=== PATIENT | female | born 1955 | race Caucasian/White ===

== ENCOUNTER 2021-07-20 09:52 | Emergency (ER) | payer MEDICARE, SELFPAY ==
[2021-07-20 10:02] VITALS: BP 103/68; PULSE 85; RESP 14; TEMP 36.2; O2SAT 98; BMI 25.7
--- NOTE | 2021-07-20 10:06 | ED_ITS ---
HPI - General Adult General: Chief complaint: General Medical Stated complaint: Low Blood Pressure Time Seen by Provider: 07/20/21 09:59 History of Present Illness: HPI narrative: Ms. Zee is a 65-year-old lady with significant past medical history of hypertension, hyperlipidemia, diabetes who presents emergency department due to concern over low blood pressure. The patient is typically seen in [facility] and has not recently been here. Per daughter, who provides all of the history at bedside, the patient has been a little bit more weak and fatigued starting yesterday but definitely over today. She took her blood pressure at home and it was 80/50. She did not recheck it and decided to bring her here to the emergency department for evaluation. Apparently the patient is more or less nonverbal at baseline for unclear reasons and rarely speaks. As such history is limited. The patient does have sick contacts. Other specific symptoms, qualities, intensities, provoking, exacerbating, and alleviating factors are unclear. Review of Systems General: Reports: ROS unobtainable due to mental status PFS ED PFSH: Surgical History History of cholecystectomy Social History Smoking and tobacco status: never smoked Alcohol intake: never Physical Exam Narrative: EXAM NARRATIVE: GENERAL/CONSTITUTIONAL -somewhat frail-appearing. No acute distress. Eyes - PERRL, no conjunctival injection ENMT - Atraumatic external nose and ears. Dry mucous membranes NECK - supple. trachea midline CARDIOVASCULAR - regular rate and rhythm. No peripheral edema. RESPIRATORY -diminished to auscultation bilaterally. No retractions or accessory muscle use. ABDOMEN/GI - Nontender. Nondistended. MSK - Extremities without obvious deformity or tenderness to palpation SKIN - Warm, Dry NEURO - alert and looks around, does not answer question,s, unable to assess orientation given patient's nonverbal status. Moves all extremities though requires significant assistance to get into bed. Course ED course: - Patient was seen and evaluated by me at bedside - Patient placed on cardiac monitors, IV access obtained - Initial evaluation notable for no acute distress, nontoxic appearance - Labs notable for no leukocytosis, normal hemoglobin. Metabolic panel without significant abnormality to explain the patient's symptoms. Delta troponin negative. Prolonged ED course due to waiting on urine, urinalysis positive for urinary tract infection. - Imaging notable for ED read of chest x-ray with no lobar consolidation. CT head notable for enlarged ventricles. Additional history obtained and patient has largely been similar as far as mental status for about 1 year. She does occasionally talk but not often. There is no acute decline. She is ambulatory with assistance however gait is not classic for primary neurologic etiology - Upon serial reexamination after treatment the patient was similar - Based on patient history, evaluation, labs, and imaging as interpreted the most likely cause of the patient's condition is urinary tract infection. I did discuss hydrocephalus findings with the patient's daughter, patient will need further outpatient evaluation. - The results of ED evaluation were discussed with the patient including prescriptions and/or symptomatic cares (if applicable) including appropriate and responsible use, followup plan, and return precautions. The patient verbalized understanding and felt safe for discharge. - Patient discharged in satisfactory condition. Vital Signs: Vital signs: Vital Signs Temperature 97.1 F L 07/20/21 10:02 Pulse Rate 72 07/20/21 16:42 Respiratory Rate 18 07/20/21 16:42 Blood Pressure 130/91 07/20/21 16:42 Pulse Oximetry 96 07/20/21 16:42 MDM - General Adult Medical Records: Attestation: I reviewed the patient's medical records. Lab Data: Attestation: I reviewed the patient's lab results. Labs: Lab Results 07/20/21 07/20/21 07/20/21 10:25 10:25 10:25 WBC 5.9 10^3/uL 10^3/ uL (4.0-10.0) RBC 4.16 10^6/uL 10^6 /uL (4.1-5.3) Hgb 13.0 g/dL g/dL (11.5-15.3) Hct 39.7 % % (37.0-47.0) MCV 95.4 fl fl (81-99) MCH 31.3 pg pg (28.0-34.0) MCHC 32.7 g/dL g/dL (30.0-36.0) RDW 11.8 % L % (12.1-15.1) Plt Count 204 10^3/cmm 10^3 /cmm (130-400) MPV 11.0 fL H fL (7.4-10.4) Neut % (Auto) 72.8 % % Lymph % (Auto) 18.4 % % Granite % (Auto) 6.2 % % Eos % (Auto) 1.9 % % Baso % (Auto) 0.5 % % Neut # (Auto) 4.32 10^3/uL 10^3 /uL (1.8-7.7) Lymph # (Auto) 1.1 10^3/uL 10^3/ uL (0.8-4.8) Granite # (Auto) 0.4 10^3/uL 10^3/ uL (0.2-0.9) Eos # (Auto) 0.1 10^3/uL 10^3/ uL (0.0-0.8) Baso # (Auto) 0.0 10^3/uL 10^3/ uL (0.0-0.1) Nucleated RBC % (a uto) 0 % % Nucleated RBCs # 0.0 /100WBC /100W BC Sodium 142 mmol/L mmol/L (136-145) Potassium 4.1 mmol/L mmol/L (3.5-5.1) Chloride 105 mmol/L mmol/L (98-107) Carbon Dioxide 27 mmol/L mmol/L (22-29) Anion Gap 14.1 (5-19) BUN 11 mg/dL mg/dL (8-23) Creatinine 0.6 mg/dL mg/dL (0.5-0.9) GFR Calculation 100.0 mL/min mL/m in (90-130) Glucose 212 mg/dL H mg/dL (65-115) POC Glucose Calculated Osmolal ity 300 mOsm/kg H mOs m/kg (285-295) Lactate 1.8 mmol/L mmol/L (0.5-2.2) Calcium 9.2 mg/dL mg/dL (8.5-10.5) Total Bilirubin 0.3 mg/dL mg/dL (0.15-1.2) AST 14 U/L U/L (0-32) ALT 14 U/L U/L (0-33) Alkaline Phosphata se 115 IU/L H IU/L (35-105) Troponin T Baselin e Troponin T 120 Min [place] Delta Troponin T Troponin T Hi Sens 6Hr Troponin T Hi Sens 6Hr Delta Total Protein 6.4 g/dL L g/dL (6.6-8.7) Albumin 3.6 g/dL g/dL (3.5-5.2) Globulin 2.8 g/dL g/dL (1.3-4.6) TSH 1.58 uIU/mL uIU/m L (0.27-4.20) Urine Color Urine Appearance Urine pH Ur Specific Gravit y Urine Protein Urine Glucose (UA) Urine Ketones Urine Blood Urine Nitrate Urine Bilirubin Urine Urobilinogen Ur Leukocyte [place] Urine RBC Urine WBC Ur Squamous Epith Cells Amorphous Sediment Urine Bacteria SARS-CoV-2 Ag (Rap id) 07/20/21 07/20/21 07/20/21 10:25 10:35 10:55 WBC RBC Hgb Hct MCV MCH MCHC RDW Plt Count MPV Neut % (Auto) Lymph % (Auto) Granite % (Auto) Eos % (Auto) Baso % (Auto) Neut # (Auto) Lymph # (Auto) Granite # (Auto) Eos # (Auto) Baso # (Auto) Nucleated RBC % (a uto) Nucleated RBCs # Sodium Potassium Chloride Carbon Dioxide Anion Gap BUN Creatinine GFR Calculation Glucose POC Glucose 217 mg/dL H mg/dL (70-110) Calculated Osmolal ity Lactate Calcium Total Bilirubin AST ALT Alkaline Phosphata se Troponin T Baselin e 14 ng/L H ng/L (0-10) Troponin T 120 Min [place] Delta Troponin T Troponin T Hi Sens 6Hr Troponin T Hi Sens 6Hr Delta Total Protein Albumin Globulin TSH Urine Color Urine Appearance Urine pH Ur Specific Gravit y Urine Protein Urine Glucose (UA) Urine Ketones Urine Blood Urine Nitrate Urine Bilirubin Urine Urobilinogen Ur Leukocyte [place] Urine RBC Urine WBC Ur Squamous Epith Cells Amorphous Sediment Urine Bacteria SARS-CoV-2 Ag (Rap id) Negative (Negative) 07/20/21 07/20/21 07/20/21 12:15 15:25 16:25 WBC RBC Hgb Hct MCV MCH MCHC RDW Plt Count MPV Neut % (Auto) Lymph % (Auto) Granite % (Auto) Eos % (Auto) Baso % (Auto) Neut # (Auto) Lymph # (Auto) Granite # (Auto) Eos # (Auto) Baso # (Auto) Nucleated RBC % (a uto) Nucleated RBCs # Sodium Potassium Chloride Carbon Dioxide Anion Gap BUN Creatinine GFR Calculation Glucose POC Glucose Calculated Osmolal ity Lactate Calcium Total Bilirubin AST ALT Alkaline Phosphata se Troponin T Baselin e Troponin T 120 Min [place] 13.93 ng/L H ng/L (0-10) Delta Troponin T -0.07 ABS# L ABS# (0-10) Troponin T Hi Sens 6Hr 13.72 ng/L H ng/L (0-10) Troponin T Hi Sens 6Hr Delta -0.28 ng/L L ng/L (0-12) Total Protein Albumin Globulin TSH Urine Color Yellow (Yellow) Urine Appearance Cloudy (CLEAR) Urine pH 7 (5-7) Ur Specific Gravit y 1.005 (1.005-1.030) Urine Protein Neg (Negative) Urine Glucose (UA) Norm (Normal) Urine Ketones Negative (Negative) Urine Blood 2+ H (Negative) Urine Nitrate Positive H (Negative) Urine Bilirubin Neg (Negative) Urine Urobilinogen Norm mg/dL mg/dL (Negative) Ur Leukocyte [place] 2+ H (Negative) Urine RBC 5-10 /hpf H /hpf (0-2) Urine WBC Too numerous to c nt /hpf H /hpf (0-5) Ur Squamous Epith Cells 0-4 /hpf H /hpf (0-5) Amorphous Sediment Not Reportable Urine Bacteria 2+ /hpf H /hpf (NONE) SARS-CoV-2 Ag (Rap id) EKG Data^: EKG 1: Attestation: I personally reviewed and interpreted this EKG as follows: EKG interpretation date: 07/20/21 EKG interpretation time: 11:23 Interpretation: Twelve-lead EKG shows a regular sinus rhythm at a rate of 70. FL interval 152, QRS duration 84, QTc 424. Normal axis. Interpretation: Sinus rhythm Computer generated interpretation: Chest X-Ray 07/20/21 10:15 IMPRESSION: No acute findings. Head CT 07/20/21 10:17 IMPRESSION: 1. The ventricles are diffusely more dilated than on the prior exam without significant change in diffuse volume loss concerning for hydrocephalus. 2. No acute hemorrhage or infarct. 3. There is patchy opacification of the right mastoid air cells. The left mastoid air cells are clear. Radiation Dose CTDIVOL = (mGy): DLP = 832.51 (mGy-cm) EKG 2: Attestation: I personally reviewed and interpreted this EKG as follows: EKG interpretation date: 07/20/21 EKG interpretation time: 16:33 Interpretation: Twelve-lead EKG shows regular sinus rhythm at a rate of 78. FL interval 173, QRS duration 76, QTc 421. Normal axis. Interpretation: Sinus rhythm, somewhat limited interpretation of inferior leads given wandering baseline. Computer generated interpretation: Chest X-Ray 07/20/21 10:15 IMPRESSION: No acute findings. Head CT 07/20/21 10:17 IMPRESSION: 1. The ventricles are diffusely more dilated than on the prior exam without significant change in diffuse volume loss concerning for hydrocephalus. 2. No acute hemorrhage or infarct. 3. There is patchy opacification of the right mastoid air cells. The left mastoid air cells are clear. Radiation Dose CTDIVOL = (mGy): DLP = 832.51 (mGy-cm) Discharge Plan Discharge Patient Disposition: Home Clinical Impression: Acute UTI, Hydrocephalus Condition: Stable Prescriptions: New cephalexin 500 mg capsule 500 mg PO Q6H 10 Days Qty: 40 RF: 0 No Action venlafaxine 75 mg tablet 75 mg PO DAILY RF: 0 glipizide 10 mg tablet 10 mg PO DAILY RF: 0 Tresiba FlexTouch U-100 100 unit/mL (3 mL) insulin pen 15 unit SUBCUT DAILY RF: 0 metformin 500 mg tablet 500 mg PO DAILY RF: 0 oxybutynin chloride 5 mg tablet 5 mg PO BID RF: 0 lisinopril 10 mg tablet 10 mg PO DAILY RF: 0 simvastatin 10 mg tablet 10 mg PO DAILY RF: 0 gabapentin 300 mg capsule 300 mg PO TID RF: 0 Discharge Orders: Discharge ED (Routine); Ordered 07/20/21 Ordered By: Maximiliano Mendez Referrals: GIOVANNI SILVEIRA MD [Primary Care Provider] - Discharge Diet: Usual diet Discharge Activity: Resume usual activity Patient Instructions: Urinary Tract Infection in Women (ED), Hydrocephalus (ED) Activity Restrictions/Additional Instructions: Thank you for visiting the emergency department. You were seen and evaluated for generalized symptoms. You are found to have a urinary tract infection which will be treated with antibiotics. The incidental finding of enlarged ventricles reflecting hydrocephalus on CT imaging was discussed and we recommend close follow-up with both your primary care provider and neurology as soon as possible. Please return to the emergency department for worsening symptoms or anything else that you are concerned about and feel needs emergency department evaluation. Coding Level of Care Code ED Addictions Counselor Assistant for Christiana Whiteside
--- NOTE | 2021-07-20 10:15 | ECG_ITS ---
[facility] Test Date: 2021-07-20 Pat Name: Melba Zee Department: Room: Gender: Female Area Coordinator: : 1955 Requested By: Maximiliano Mendez Order Number: [id number] Janna MD: Lb Muse M.D. Measurements Intervals [place] Rate: 70 P: 46 [place]: 152 QRS: 10 QRSD: 84 T: 47 QT: 392 QTc: 424 Interpretive Statements SINUS RHYTHM WITH OCCASIONAL SUPRAVENTRICULAR PREMATURE COMPLEXES LOW QRS VOLTAGE IN PRECORDIAL LEADS [QRS DEFLECTION < 1.0 mV IN CHEST LEADS] Compared to ECG 05/22/2019 16:48:22 Low QRS voltage now present Electronically Signed On 07-20-2021 18:05:55 CDT by Lb Muse M.D. [id number]
--- NOTE | 2021-07-20 10:15 | XRR_ITS ---
PROCEDURE INFORMATION: Exam: XR Chest Exam date and time: 07/20/2021 10:15 AM Age: 65 years old Clinical indication: Dyspnea; Additional info: Hypotension TECHNIQUE: Imaging protocol: XR of the chest. Views: 1 view. COMPARISON: No relevant prior studies available. FINDINGS: Lungs: There is poor depth of inspiration. No consolidation. The pulmonary vascularity is within normal limits. Pleural spaces: Unremarkable. No pleural effusion. No pneumothorax. Heart/Mediastinum: Unremarkable. No cardiomegaly. Bones/joints: No acute abnormality. XR/XR chest 1V portable [id number] IMPRESSION: No acute findings.
--- NOTE | 2021-07-20 10:17 | CTR_ITS ---
PROCEDURE INFORMATION: Exam: CT Head Without Contrast Exam date and time: 07/20/2021 10:17 AM Age: 65 years old Clinical indication: Altered mental status/memory loss; Confusion or disorientation; Additional info: AMS, nonverbal TECHNIQUE: Imaging protocol: Computed tomography of the head without contrast. Radiation optimization: All CT scans at this facility use at least one of these dose optimization techniques: automated exposure control; mA and/or kV adjustment per patient size (includes targeted exams where dose is matched to clinical indication); or iterative reconstruction. COMPARISON: CT head wo con* [id number] 05/22/2019 4:52 PM RADIATION DOSE METRICS: Total DLP (mGy-cm): 832.51 FINDINGS: Brain: There is volume loss and periventricular low density compatible with chronic small vessel disease changes. There is no acute hemorrhage, edema or mass effect. There is unchanged volume loss/encephalomalacia in the left frontal, parietal and temporal lobes. Cerebral ventricles: All of the ventricles are more dilated than the prior exam without significant change in the volume loss concerning for hydrocephalus with dilatation of the temporal horns. The 3rd ventricle transverse measurement is 1 cm image 19 today where previously it measured 7 mm. Paranasal sinuses: Visualized sinuses are unremarkable. No fluid levels. Mastoid air cells: There is patchy opacification of the right mastoid air cells. Bones/joints: Unremarkable. No acute fracture. Soft tissues: Unremarkable. CT/CT head wo con* [id number] IMPRESSION: 1. The ventricles are diffusely more dilated than on the prior exam without significant change in diffuse volume loss concerning for hydrocephalus. 2. No acute hemorrhage or infarct. 3. There is patchy opacification of the right mastoid air cells. The left mastoid air cells are clear. Radiation Dose CTDIVOL = (mGy): DLP = 832.51 (mGy-cm)
[2021-07-20 10:37] LABS: Glucose Point of Care 217 mg/dL (70-110)
[2021-07-20 10:43] LABS: Basophils % 0.5 %; Eosinophils # 0.1 10^3/uL (0.0-0.8); Eosinophils % 1.9 %; Hematocrit 39.7 % (37.0-47.0); Lymphocytes # 1.1 10^3/uL (0.8-4.8); Lymphocytes % 18.4 %; Mean Corpuscular HGB Conc 32.7 g/dL (30.0-36.0); Mean Corpuscular Hemoglobin 31.3 pg (28.0-34.0); Mean Corpuscular Volume 95.4 fl (81-99); Monocytes # 0.4 10^3/uL (0.2-0.9); Monocytes % 6.2 %; Neutrophils # 4.32 10^3/uL (1.8-7.7); Neutrophils % 72.8 %; Nucleated Red Blood Cells % 0 %; Platelet Count 204 10^3/cmm (130-400); Red Blood Count 4.16 10^6/uL (4.1-5.3); Red Cell Distribution Width 11.8 % (12.1-15.1); White Blood Count 5.9 10^3/uL (4.0-10.0)
[2021-07-20] MEDS: sodium chloride 0.9% 1,000 ML 999 ML IV (11:08)
[2021-07-20 11:09] LABS: Troponin(5th) Baseline 14 ng/L (0-10)
[2021-07-20 11:10] LABS: Lactate (Lactic Acid level) 1.8 mmol/L (0.5-2.2)
[2021-07-20 11:19] LABS: Alanine Aminotransferase 14 U/L (0-33); Albumin Level 3.6 g/dL (3.5-5.2); Alkaline Phosphatase 115 IU/L (35-105); Anion Gap 14.1 (5-19); Aspartate Amino Transferase 14 U/L (0-32); Blood Urea Nitrogen 11 mg/dL (8-23); Calcium 9.2 mg/dL (8.5-10.5); Carbon Dioxide 27 mmol/L (22-29); Chloride 105 mmol/L (98-107); Creatinine Clr Calc Pharmacy 65.5597; Globulin 2.8 g/dL (1.3-4.6); Glucose 212 mg/dL (65-115); Osmolality Calculated 300 mOsm/kg (285-295); Potassium 4.1 mmol/L (3.5-5.1); Sodium 142 mmol/L (136-145); Thyroid Stimulating Hormone 1.58 uIU/mL (0.27-4.20); Total Bilirubin 0.3 mg/dL (0.15-1.2); Total Protein 6.4 g/dL (6.6-8.7)
[2021-07-20 11:44] LABS: SARS Covid-2 Antigen Negative (Negative)
[2021-07-20 12:02] VITALS: BP 135/70; PULSE 64; RESP 17; O2SAT 95
--- NOTE | 2021-07-20 12:15 | ECG_ITS ---
[facility] Test Date: 2021-07-20 Pat Name: Melba Zee Department: Room: Gender: Female Business Consult: : 1955 Requested By: Maximiliano Mendez Order Number: [id number] Janna MD: Lb Muse M.D. Measurements Intervals [place] Rate: 86 P: 51 VT: 178 QRS: 22 QRSD: 71 T: 47 QT: 347 QTc: 416 Interpretive Statements SINUS RHYTHM WITH OCCASIONAL SUPRAVENTRICULAR PREMATURE COMPLEXES LOW QRS VOLTAGE IN PRECORDIAL LEADS [QRS DEFLECTION < 1.0 mV IN CHEST LEADS] SEPTAL MYOCARDIAL INFARCTION , PROBABLY OLD [40+ ms Q WAVE IN V1/V2] Compared to ECG 05/22/2019 16:48:22 Low QRS voltage now present Myocardial infarct finding now present Electronically Signed On 07-20-2021 18:16:38 CDT by Lb Muse M.D. [id number]
[2021-07-20 12:46] VITALS: BP 128/84; PULSE 67; RESP 18; O2SAT 100
[2021-07-20 12:49] LABS: Troponin 5 2HR 13.93 ng/L (0-10)
[2021-07-20 12:50] LABS: Troponin 5 2HR Delta -0.07 ABS# (0-10)
[2021-07-20 13:34] VITALS: BP 142/79; PULSE 67; RESP 17; O2SAT 100
[2021-07-20] MEDS: lactated ringers 1,000 ML 999 ML IV (14:06)
--- NOTE | 2021-07-20 16:15 | ECG_ITS ---
[facility] Test Date: 2021-07-20 Pat Name: Melba Zee Department: Room: Gender: Female Lab Support Service Tech: : 1955 Requested By: Maximiliano Mendez Order Number: [id number] Janna MD: Lb Muse M.D. Measurements Intervals [place] Rate: 78 P: 44 [place]: 173 QRS: 4 QRSD: 76 T: 26 QT: 369 QTc: 421 Interpretive Statements SINUS RHYTHM LOW QRS VOLTAGE IN PRECORDIAL LEADS [QRS DEFLECTION < 1.0 mV IN CHEST LEADS] SEPTAL MYOCARDIAL INFARCTION , PROBABLY OLD [40+ ms Q WAVE IN V1/V2] Compared to ECG 07/20/2021 13:06:06 No significant changes Electronically Signed On 07-20-2021 18:16:58 CDT by Lb Muse M.D. [id number]
[2021-07-20 16:42] VITALS: BP 130/91; PULSE 72; RESP 18; O2SAT 96
[2021-07-20 16:52] LABS: Bilirubin Urine Neg (Negative); Blood Urine 2+ (Negative); Glucose Urine UA Norm (Normal); Ketones Urine Negative (Negative); Nitrate Urine Positive (Negative); Protein Urine Neg (Negative); Specific Gravity, Urine 1.005 (1.005-1.030); Urine Appearance Cloudy (CLEAR); Urine Color Yellow (Yellow); Urobilinogen Urine Norm (Negative); pH Urine 7 (5-7)
[2021-07-20 16:53] LABS: Add Urine Culture? Yes; Add Urine Microscopic? YES; Bacteria Urine 2+ /hpf; Leukocyte Esterase Urine 2+ (Negative); Squamous Epithelial Cell Urine 0-4 /hpf (0-5); WBC Urine TOO NUMEROUS TO CNT /hpf (0-5)
[2021-07-20 17:18] LABS: Troponin 5 6HR 13.72 ng/L (0-10)
[2021-07-20 17:19] LABS: Troponin 5 6HR Delta -0.28 ng/L (0-12)
[2021-07-20] MEDS: cefTRIAXone 1,000 MG in sodium chloride 0.9% (plus) 50 ML 100 MG IV (17:25)
== END 2021-07-20 18:02 | disposition home or self-care (01) ==
PROVIDERS: Emergency Provider Emergency Medicine; PCP Family Medicine
DX: N39.0 Urinary tract infection, site not specified (principal); G91.9 Hydrocephalus, unspecified; Z79.4 Long term (current) use of insulin; Z20.822 Contact with and (suspected) exposure to COVID-19
CPT/HCPCS: 36415; 36416; 70450; 71045; 80053; 81001; 82962; 83605; 84443; 84484; 85025; 87077; 87086; 87186; 87426; 93005; 96361; 96365; 99284; J0696; J7030

== ENCOUNTER → 2021-08-15 14:19 | Outpatient (BNVA) | payer MEDICARE, SELFPAY | PROVIDERS: PCP Family Medicine; Visit Provider Registered Nurse Neonatal Intensive Care | DX: N39.0 Urinary tract infection, site not specified (principal) | CPT/HCPCS: 81000 ==

== ENCOUNTER 2022-01-06 17:05 | Inpatient (IN) | payer MEDICARE, MEDICAID, SELFPAY ==
[2022-01-06 17:34] VITALS: PULSE 71; TEMP 36.1; O2SAT 90; BMI 21.4
--- NOTE | 2022-01-06 17:37 | W.ED.GENADLT ---
Documented by User: Willam Batres DO 01/08/22 06:54 HPI - General Adult General: Chief complaint: General Medical Stated complaint: failure to thrive Time Seen by Provider: 01/06/22 17:07 History of Present Illness: Onset (ago): week(s) Severity: severe Relieving factors: none Exacerbating factors: none Associated symptoms: Reports confusion, decreased appetite, malaise and weakness; Deny chest pain, cough, diaphoresis, dyspnea, fevers/chills, headache(s), nausea, rash, seizures, short of breath, syncope or vomiting Treatments prior to arrival: none Review of Systems General: Reports: Other (Difficult due to patient's mental status. Caregivers at the bedside assist) Const: Reports: malaise; Denies: diaphoresis Card: Denies: chest pain or syncope Resp: Denies: dyspnea GI: Denies: nausea or vomiting Skin/Breast: Denies: rash Neuro: Reports: confusion; Denies: headache(s) PFS ED PFSH: Medical History Dementia Diabetes HLD (hyperlipidemia) Hydrocephalus Hypertension Surgical History History of cholecystectomy Social History Smoking and tobacco status: never smoked Alcohol intake: never Physical Exam Const: COMMON NORMALS: no acute distress GENERAL APPEARANCE: comfortable NUTRITIONAL APPEARANCE: cachectic ORIENTATION/CONSCIOUSNESS: Yes awake HENMT: COMMON NORMALS: normocephalic, atraumatic, hearing grossly normal bilaterally, external ears normal, EAC's normal, TM's normal bilaterally, Normal nasal mucous membranes and turbinates present, moist oral mucous membranes and oropharynx normal HEAD & SCALP: normocephalic and atraumatic NOSE: Normal nasal mucous membranes and turbinates present EXTERNAL EAR: Yes external ears normal EXTERNAL AUDITORY CANAL: EAC's normal TYMPANIC MEMBRANE: TM's normal bilaterally Eye: COMMON NORMALS: Equal, round and reactive pupils present, EOMs intact bilaterally, conjunctivae normal and no scleral icterus CONJUNCTIVA: Yes conjunctivae normal PUPIL: Yes Equal, round and reactive pupils present Neck/C-Spine: COMMON NORMALS: full ROM, no lymphadenopathy, supple and no JVD Lymph: LYMPHATIC: no lymphadenopathy noted and no lymphedema noted Resp: COMMON NORMALS: normal respiratory effort, No retractions, No use of accessory muscles and clear to auscultation bilaterally AUSCULTATION: clear to auscultation bilaterally Cardio: COMMON NORMALS: no JVD, regular rate, regular rhythm and No murmurs present (Cardio) RATE: regular rate RHYTHM: regular rhythm GI: COMMON NORMALS: Soft to palpation and No hepatosplenomegaly present AUSCULTATION: Yes normoactive bowel sounds PALPATION: Yes Soft to palpation, No Tenderness to palpation present (GI), No Guarding due to palpation present (GI) and Yes No hepatosplenomegaly present Extremity: COMMON NORMALS: normal to inspection, capillary refill normal, no clubbing, cyanosis or edema, no calf tenderness and no pedal edema Neuro: OTHER: Patient nonresponsive to all questions. Skin: COMMON NORMALS: no rashes or lesions noted GENERAL SKIN EXAM: no rashes or lesions noted Course Vital Signs: Vital signs: Vital Signs Temperature 97.9 F 01/08/22 04:00 Pulse Rate 84 01/08/22 04:00 Respiratory Rate 16 01/08/22 04:00 Blood Pressure 101/63 01/08/22 04:00 Pulse Oximetry 96 01/08/22 04:00 [facility] - General Adult Medical Decision Making Care signed out to Dr. Brandt at change of shift. See final notes for diagnosis and disposition. WeaknessPatient presents here with failure to thrive and weight loss. Family states she has not been eating or drinking spoke to hospitalist will admit for rehydration. Patient's blood work does show that she is quite dehydrated Lab Data : 01/08/22 05:47 01/07/22 17:00 Radiology Impressions Chest X-Ray 01/06/22 17:38 IMPRESSION: No acute findings. Head CT 01/06/22 17:38 IMPRESSION: 1. No acute intracranial abnormality. 2. Right mastoid effusion. 3. Marked cerebral atrophy and chronic microvascular white matter disease. Liver Ultrasound 01/07/22 08:07 IMPRESSION: 1. Hepatic echotexture suggesting changes of cirrhosis. No mass. 2. Gallbladder is not identified. May have been surgically removed or contracted. 3. No bile duct dilatation. Laboratory Results WBC 12.5 10^3/uL (4.0-10.0) H 01/06/22 18:20 RBC 5.46 10^6/uL (4.1-5.3) H 01/06/22 18:20 Hgb 17.2 g/dL (11.5-15.3) H 01/06/22 18:20 Hct 55.4 % (37.0-47.0) H 01/06/22 18:20 MCV 101.5 fl (81-99) H 01/06/22 18:20 MCH 31.5 pg (28.0-34.0) 01/06/22 18: MCHC 31.0 g/dL (30.0-36.0) 01/06/22 18: RDW 13.2 % (12.1-15.1) 01/06/22 18: Plt Count 194 10^3/cmm (130-400) 01/06/22 18:20 MPV 14.4 fL (7.4-10.4) H 01/06/22 18:20 Neut % (Auto) 82.2 % 01/06/22 18:20 Lymph % (Auto) 12.1 % 01/06/22 18:20 [place] % (Auto) 4.5 % 01/06/22 18:20 Eos % (Auto) 0.5 % 01/06/22 18: Baso % (Auto) 0.3 % 01/06/22 18:20 Neut # (Auto) 10.31 10^3/uL (1.8-7.7) H 01/06/22 18:20 Lymph # (Auto) 1.5 10^3/uL (0.8-4.8) 01/06/22 18:20 [place] # (Auto) 0.6 10^3/uL (0.2-0.9) 01/06/22 18:20 Eos # (Auto) 0.1 10^3/uL (0.0-0.8) 01/06/22 18:20 Baso # (Auto) 0.0 10^3/uL (0.0-0.1) 01/06/22 18:20 Nucleated RBC % (auto) 0 % 01/06/22 18: Nucleated RBCs # 0.0 /100WBC 01/06/22 18:20 Sodium 152 mmol/L (136-145) H 01/06/22 18:20 Potassium 4.6 mmol/L (3.5-5.1) 01/06/22 18:20 Chloride 115 mmol/L (98-107) H 01/06/22 18:20 Carbon Dioxide 24 mmol/L (22-29) 01/06/22 18:20 Anion Gap 17.6 (5-19) 01/06/22 18:20 BUN 93 mg/dL (8-23) H* D 01/06/22 18:20 Creatinine 1.5 mg/dL (0.5-0.9) H 01/06/22 18:20 GFR Calculation 34.6 mL/min (90-130) L 01/06/22 18:20 Glucose 255 mg/dL (65-115) H 01/06/22 18:20 Calculated Osmolality 351 mOsm/kg (285-295) H 01/06/22 18:20 Lactic Acid 2.3 mmol/L (0.5-2.2) H 01/06/22 18:20 Calcium 10.6 mg/dL (8.5-10.5) H 01/06/22 18:20 Magnesium 2.5 mg/dL (1.7-2.3) H 01/06/22 18:20 Total Bilirubin 0.3 mg/dL (0.15-1.2) 01/06/22 18:20 AST 253 U/L (0-32) H 01/06/22 18:20 ALT 360 U/L (0-33) H 01/06/22 18:20 Alkaline Phosphatase 477 IU/L (35-105) H 01/06/22 18:20 Creatine Kinase 47 U/L (26-192) 01/06/22 18:20 Total Protein 7.4 g/dL (6.6-8.7) 01/06/22 18:20 Albumin 3.9 g/dL (3.5-5.2) 01/06/22 18:20 Globulin 3.5 g/dL (1.3-4.6) 01/06/22 18:20 Lipase 19 U/L (13-60) 01/06/22 18:20 Urine Color Yellow (Yellow) 01/06/22 18:20 Urine Appearance Hazy (CLEAR) A 01/06/22 18:20 Urine pH 5 (5-7) 01/06/22 18:20 Ur Specific [place] 1.030 (1.005-1.030) 01/06/22 18:20 Urine Protein 1+ (Negative) H 01/06/22 18:20 Urine Glucose (UA) Norm (Normal) 01/06/22 18:20 Urine Ketones Negative (Negative) 01/06/22 18:20 Urine Blood Trace (Negative) H 01/06/22 18:20 Urine Nitrate Negative (Negative) 01/06/22 18:20 Urine Bilirubin 1+ (Negative) H 01/06/22 18:20 Urine Urobilinogen 4 mg/dL (Negative) H 01/06/22 18:20 Ur Leukocyte Esterase 2+ (Negative) H 01/06/22 18:20 Urine RBC 0-4 /hpf (0-2) H 01/06/22 18:20 Urine WBC 15-25 /hpf (0-5) H 01/06/22 18:20 Ur Squamous Epith Cells 0-4 /hpf (0-5) H 01/06/22 18:20 Amorphous Sediment Not Reportable 01/06/22 18:20 Urine Bacteria 4+ /hpf (NONE) H 01/06/22 18:20 Urine Mucus 3+ /hpf 01/06/22 18:20 Ur Random Sodium 31 mmol/L 01/06/22 10:20 Ur Random Potassium 64 mmol/L 01/06/22 10:20 Ur Random Chloride 19 mmol/L 01/06/22 10:20 EKG Data EKG 1: Computer generated interpretation: Chest X-Ray 01/06/22 17:38 IMPRESSION: No acute findings. Head CT 01/06/22 17:38 IMPRESSION: 1. No acute intracranial abnormality. 2. Right mastoid effusion. 3. Marked cerebral atrophy and chronic microvascular white matter disease. Liver Ultrasound 01/07/22 08:07 IMPRESSION: 1. Hepatic echotexture suggesting changes of cirrhosis. No mass. 2. Gallbladder is not identified. May have been surgically removed or contracted. 3. No bile duct dilatation. Discharge Plan Discharge Patient Disposition: Admitted As Inpatient Admit Provider: Angela Davison Clinical Impression: Adult failure to thrive, Weakness, Dehydration Condition: Stable Coding Level of Care Code ED Etcher Photoengraving for Chg Fwd Documented by User: Sajan Brandt MD 01/06/22 19:33 HPI - General Adult General: Chief complaint: General Medical Stated complaint: failure to thrive Time Seen by Provider: 01/06/22 17:07 Source: patient and EMS Mode of arrival: EMS Limitations: no limitations History of Present Illness: 66-year-old female family states is severe dementia and has been having increasing weakness states she has not been eating or drinking for weeks and has been losing weight states she is not able to ambulate is concerned that she is having failure to thrive states that she has been getting increasingly dehydrated no fever no vomiting no diarrhea denies any worsening improving factors. PFSH ED PFSH: Medical History Dementia Diabetes HLD (hyperlipidemia) Hydrocephalus Hypertension Surgical History History of cholecystectomy Social History Smoking and tobacco status: never smoked Alcohol intake: never Course Vital Signs: Vital signs: Vital Signs Temperature 97.9 F 01/08/22 04:00 Pulse Rate 84 01/08/22 04:00 Respiratory Rate 16 01/08/22 04:00 Blood Pressure 101/63 01/08/22 04:00 Pulse Oximetry 96 01/08/22 04:00 [facility] - General Adult Medical Decision Making WeaknessPatient presents here with failure to thrive and weight loss. Family states she has not been eating or drinking spoke to hospitalist will admit for rehydration. Patient's blood work does show that she is quite dehydrated Lab Data : 01/08/22 05:47 01/07/22 17:00 Radiology Impressions Chest X-Ray 01/06/22 17:38 IMPRESSION: No acute findings. Head CT 01/06/22 17:38 IMPRESSION: 1. No acute intracranial abnormality. 2. Right mastoid effusion. 3. Marked cerebral atrophy and chronic microvascular white matter disease. Liver Ultrasound 01/07/22 08:07 IMPRESSION: 1. Hepatic echotexture suggesting changes of cirrhosis. No mass. 2. Gallbladder is not identified. May have been surgically removed or contracted. 3. No bile duct dilatation. Laboratory Results WBC 12.5 10^3/uL (4.0-10.0) H 01/06/22 18:20 RBC 5.46 10^6/uL (4.1-5.3) H 01/06/22 18:20 Hgb 17.2 g/dL (11.5-15.3) H 01/06/22 18:20 Hct 55.4 % (37.0-47.0) H 01/06/22 18:20 MCV 101.5 fl (81-99) H 01/06/22 18:20 MCH 31.5 pg (28.0-34.0) 01/06/22 18:20 MCHC 31.0 g/dL (30.0-36.0) 01/06/22 18:20 RDW 13.2 % (12.1-15.1) 01/06/22 18:20 Plt Count 194 10^3/cmm (130-400) 01/06/22 18:20 MPV 14.4 fL (7.4-10.4) H 01/06/22 18:20 Neut % (Auto) 82.2 % 01/06/22 18:20 Lymph % (Auto) 12.1 % 01/06/22 18:20 [place] % (Auto) 4.5 % 01/06/22 18:20 Eos % (Auto) 0.5 % 01/06/22 18:20 Baso % (Auto) 0.3 % 01/06/22 18:20 Neut # (Auto) 10.31 10^3/uL (1.8-7.7) H 01/06/22 18:20 Lymph # (Auto) 1.5 10^3/uL (0.8-4.8) 01/06/22 18:20 [place] # (Auto) 0.6 10^3/uL (0.2-0.9) 01/06/22 18:20 Eos # (Auto) 0.1 10^3/uL (0.0-0.8) 01/06/22 18:20 Baso # (Auto) 0.0 10^3/uL (0.0-0.1) 01/06/22 18:20 Nucleated RBC % (auto) 0 % 01/06/22 18:20 Nucleated RBCs # 0.0 /100WBC 01/06/22 18:20 Sodium 152 mmol/L (136-145) H 01/06/22 18:20 Potassium 4.6 mmol/L (3.5-5.1) 01/06/22 18:20 Chloride 115 mmol/L (98-107) H 01/06/22 18:20 Carbon Dioxide 24 mmol/L (22-29) 01/06/22 18:20 Anion Gap 17.6 (5-19) 01/06/22 18:20 BUN 93 mg/dL (8-23) H* D 01/06/22 18:20 Creatinine 1.5 mg/dL (0.5-0.9) H 01/06/22 18:20 GFR Calculation 34.6 mL/min (90-130) L 01/06/22 18:20 Glucose 255 mg/dL (65-115) H 01/06/22 18:20 Calculated Osmolality 351 mOsm/kg (285-295) H 01/06/22 18:20 Lactic Acid 2.3 mmol/L (0.5-2.2) H 01/06/22 18:20 Calcium 10.6 mg/dL (8.5-10.5) H 01/06/22 18:20 Magnesium 2.5 mg/dL (1.7-2.3) H 01/06/22 18:20 Total Bilirubin 0.3 mg/dL (0.15-1.2) 01/06/22 18:20 AST 253 U/L (0-32) H 01/06/22 18:20 ALT 360 U/L (0-33) H 01/06/22 18:20 Alkaline Phosphatase 477 IU/L (35-105) H 01/06/22 18:20 Creatine Kinase 47 U/L (26-192) 01/06/22 18:20 Total Protein 7.4 g/dL (6.6-8.7) 01/06/22 18:20 Albumin 3.9 g/dL (3.5-5.2) 01/06/22 18:20 Globulin 3.5 g/dL (1.3-4.6) 01/06/22 18:20 Lipase 19 U/L (13-60) 01/06/22 18:20 Urine Color Yellow (Yellow) 01/06/22 18:20 Urine Appearance Hazy (CLEAR) A 01/06/22 18:20 Urine pH 5 (5-7) 01/06/22 18:20 Ur Specific [place] 1.030 (1.005-1.030) 01/06/22 18:20 Urine Protein 1+ (Negative) H 01/06/22 18:20 Urine Glucose (UA) Norm (Normal) 01/06/22 18:20 Urine Ketones Negative (Negative) 01/06/22 18:20 Urine Blood Trace (Negative) H 01/06/22 18:20 Urine Nitrate Negative (Negative) 01/06/22 18:20 Urine Bilirubin 1+ (Negative) H 01/06/22 18:20 Urine Urobilinogen 4 mg/dL (Negative) H 01/06/22 18:20 Ur Leukocyte Esterase 2+ (Negative) H 01/06/22 18:20 Urine RBC 0-4 /hpf (0-2) H 01/06/22 18:20 Urine WBC 15-25 /hpf (0-5) H 01/06/22 18:20 Ur Squamous Epith Cells 0-4 /hpf (0-5) H 01/06/22 18:20 Amorphous Sediment Not Reportable 01/06/22 18:20 Urine Bacteria 4+ /hpf (NONE) H 01/06/22 18:20 Urine Mucus 3+ /hpf 01/06/22 18:20 Ur Random Sodium 31 mmol/L 01/06/22 10:20 Ur Random Potassium 64 mmol/L 01/06/22 10:20 Ur Random Chloride 19 mmol/L 01/06/22 10:20 EKG Data EKG 1: I personally reviewed and interpreted this EKG as follows: EKG interpretation date: 01/06/22 EKG interpretation time: 18:31 Interpretation: nsr hr [address] or t wave abnormalities qrs 72 qtc 411 Computer generated interpretation: Chest X-Ray 01/06/22 17:38 IMPRESSION: No acute findings. Head CT 01/06/22 17:38 IMPRESSION: 1. No acute intracranial abnormality. 2. Right mastoid effusion. 3. Marked cerebral atrophy and chronic microvascular white matter disease. Liver Ultrasound 01/07/22 08:07 IMPRESSION: 1. Hepatic echotexture suggesting changes of cirrhosis. No mass. 2. Gallbladder is not identified. May have been surgically removed or contracted. 3. No bile duct dilatation. Discharge Plan Discharge Patient Disposition: Admitted As Inpatient Admit Provider: Angela Davison Clinical Impression: Adult failure to thrive, Weakness, Dehydration Condition: Stable Coding Level of Care Code ED Etcher Photoengraving for Christiana Whiteside
--- NOTE | 2022-01-06 17:38 | ECG_ITS ---
[facility] Test Date: 2022-01-06 Pat Name: Melba Zee Department: Room: Gender: Female [employer]: : [id number] Requested By: Willam Figueroa Order Number: [id number] Janna MD: Ronal Gleason M.D. Measurements Intervals [place] Rate: 96 P: 65 VA: 138 QRS: 34 QRSD: 72 T: 76 QT: 357 QTc: 452 Interpretive Statements SINUS RHYTHM Compared to ECG 07/20/2021 16:30:09 Myocardial infarct finding no longer present Electronically Signed On 01-06-2022 20:21:49 CARTON STAMPER by Ronal Gleason M.D. [id number]
--- NOTE | 2022-01-06 17:38 | CTR_ITS ---
PROCEDURE INFORMATION: Exam: CT Head Without Contrast Exam date and time: 01/06/2022 5:38 PM Age: 66 years old Clinical indication: Altered mental status/memory loss; Additional info: AMS TECHNIQUE: Imaging protocol: Computed tomography of the head without contrast. Radiation optimization: All CT scans at this facility use at least one of these dose optimization techniques: automated exposure control; mA and/or kV adjustment per patient size (includes targeted exams where dose is matched to clinical indication); or iterative reconstruction. COMPARISON: CT head wo con* [id number] 07/20/2021 10:34 AM RADIATION DOSE METRICS: Total DLP (mGy-cm): 814.19 FINDINGS: Brain: There is marked diffuse cerebral atrophy. There is hypoattenuation in the periventricular and subcortical white matter consistent with chronic microvascular disease. There is no acute intracranial hemorrhage. Cerebral ventricles: There is stable moderate ex vacuo dilation of the lateral ventricles. Paranasal sinuses: The paranasal sinuses are clear. Mastoid air cells: Right mastoid effusion. Bones/joints: The calvarium is intact. Soft tissues: The visible extracranial soft tissues are unremarkable. CT/CT head wo con* [id number] IMPRESSION: 1. No acute intracranial abnormality. 2. Right mastoid effusion. 3. Marked cerebral atrophy and chronic microvascular white matter disease.
--- NOTE | 2022-01-06 17:38 | XRR_ITS ---
PROCEDURE INFORMATION: Exam: XR Chest Exam date and time: 01/06/2022 5:38 PM Age: 66 years old Clinical indication: Cough and shortness of breath; Additional info: Dyspnea/cough TECHNIQUE: Imaging protocol: XR of the chest. Views: 1 view. COMPARISON: CR XR chest 1V portable [id number] 07/20/2021 10:27 AM FINDINGS: Lungs: Lungs are clear. Pleural spaces: There is no pleural effusion or pneumothorax. Heart/Mediastinum: Cardiomediastinal contours are unremarkable. Bones/joints: Bones are unremarkable. XR/XR chest 1V portable [id number] IMPRESSION: No acute findings.
[2022-01-06 18:22] VITALS: BP 92/65; PULSE 94; RESP 16; O2SAT 91
--- NOTE | 2022-01-06 18:35 | PC.NURSE ---
PATIENT PLACED ON CONTINUOUS NIBP, SPO2, AND CM
[2022-01-06] MEDS: ondansetron 2 mg/ML SDV 2 mL 4 MG IVP (18:36)
[2022-01-06 18:45] LABS: Basophils % 0.3 %; Eosinophils # 0.1 10^3/uL (0.0-0.8); Eosinophils % 0.5 %; Hematocrit 55.4 % (37.0-47.0); Hemoglobin 17.2 g/dL (11.5-15.3); Lymphocytes # 1.5 10^3/uL (0.8-4.8); Lymphocytes % 12.1 %; Mean Corpuscular Hemoglobin 31.5 pg (28.0-34.0); Mean Corpuscular Volume 101.5 fl (81-99); Mean Platelet Volume 14.4 fL (7.4-10.4); Monocytes # 0.6 10^3/uL (0.2-0.9); Monocytes % 4.5 %; Neutrophils # 10.31 10^3/uL (1.8-7.7); Neutrophils % 82.2 %; Nucleated Red Blood Cells % 0 %; Platelet Count 194 10^3/cmm (130-400); Red Blood Count 5.46 10^6/uL (4.1-5.3); Red Cell Distribution Width 13.2 % (12.1-15.1); White Blood Count 12.5 10^3/uL (4.0-10.0)
[2022-01-06] MEDS: sodium chloride 0.9% 1,000 ML 999 ML IV (18:54)
--- NOTE | 2022-01-06 19:10 | PC.NURSE ---
REPORT GIVEN TO BRADLEY MOREL ASSUMED CARE.
[2022-01-06 19:19] LABS: Alanine Aminotransferase 360 U/L (0-33); Albumin Level 3.9 g/dL (3.5-5.2); Alkaline Phosphatase 477 IU/L (35-105); Anion Gap 17.6 (5-19); Aspartate Amino Transferase 253 U/L (0-32); Carbon Dioxide 24 mmol/L (22-29); Chloride 115 mmol/L (98-107); Creatine Phosphokinase 47 U/L (26-192); Globulin 3.5 g/dL (1.3-4.6); Glomerular Filtration Rate 34.6 mL/min (90-130); Glucose 255 mg/dL (65-115); Lactic Sepsis W/Reflex 2.3 mmol/L (0.5-2.2); Lipase 19 U/L (13-60); Magnesium 2.5 mg/dL (1.7-2.3); Osmolality Calculated 351 mOsm/kg (285-295); Potassium 4.6 mmol/L (3.5-5.1); Sodium 152 mmol/L (136-145); Total Bilirubin 0.3 mg/dL (0.15-1.2); Total Protein 7.4 g/dL (6.6-8.7)
[2022-01-06 19:20] LABS: Blood Urea Nitrogen 93 mg/dL (8-23)
[2022-01-06 19:33] LABS: Calcium 10.6 mg/dL (8.5-10.5)
[2022-01-06 19:47] LABS: Blood Urine Trace (Negative); Glucose Urine UA Norm (Normal); Ketones Urine Negative (Negative); Nitrate Urine Negative (Negative); Protein Urine 1+ (Negative); Urine Appearance Hazy (CLEAR); Urine Color Yellow (Yellow); pH Urine 5 (5-7)
[2022-01-06 19:48] LABS: Add Urine Culture? Yes; Add Urine Microscopic? YES; Bacteria Urine 4+ /hpf; Bilirubin Urine 1+ (Negative); Leukocyte Esterase Urine 2+ (Negative); Mucus Urine 3+ /hpf; RBC Urine 0-4 /hpf (0-2); Squamous Epithelial Cell Urine 0-4 /hpf (0-5); Urobilinogen Urine 4 mg/dL (Negative); WBC Urine 15-25 /hpf (0-5)
[2022-01-06 20:26] LABS: Reflex Lactate Order REFLEX LACTIC ORDERD
[2022-01-06 21:03] LABS: Lactic Acid level (Lactate) 1.7 mmol/L (0.5-2.2)
[2022-01-06 21:27] LABS: Glucose Point of Care 157 mg/dL (70-110)
[2022-01-06 22:07] VITALS: BMI 21.4
[2022-01-07] VITALS (8 sets, daily range): BP systolic 101–128; BP diastolic 63–80; PULSE 64–90; RESP 16–18; TEMP 36.4–36.8; O2SAT 90–99
--- NOTE | 2022-01-07 00:30 | PM.HP ---
Providers/Chief Complaint Admitting Physician: Angela Davison MD Primary Care Provider: GIOVANNI SILVEIRA MD Chief Complaint: failure to thrive History of Present Illness Melba Zee is a 66 year old female with past medical history of dementia, hydrocephalus, nonverbal at baseline. Brought in today by her family. Per patient's daughter, at a baseline patient has been nonverbal at least for the past 5 to 6 years, however she is able to ambulate with a walker, follows some simple commands, is able to communicate with gestures with her daughter. Over this past week she has been increasingly more lethargic and fatigued. She has not been walking as usual. Also noted to be needing to eat a pur?ed diet and having a poor p.o. intake. Normally she keeps a glass glass of water and is able to sip from a straw but has been unable to do that over the past week. Daughter states that during past episodes of UTI and infection patient's mental status usually deteriorates and she was brought into the emergency room for this concern. Here she was noted to have multiple electrolyte abnormalities, hypernatremia with sodium at 152, chloride 115, elevated creatinine at 1.5] baseline 0.9). Patient was started on lisinopril 5 mg daily over the past month for hypertension, however this was discontinued yesterday. She was also noted to have mild hypercalcemia deranged LFTs and a positive UA. Review of Systems General: Reports: ROS unobtainable due to medical condition and ROS unobtainable due to mental status Const: Denies: fever(s), chills or body aches Eyes: Denies: change in vision, blurry vision or photophobia ENMT: Reports: hoarseness; Denies: throat pain, enlarged tonsils, odynophagia or nasal congestion Card: Denies: chest pain, palpitations, irregular heart rhythm, edema, swelling of feet/ankles, lightheadedness, pre-syncope, dyspnea on exertion or orthopnea Resp: Denies: dyspnea, productive cough, non-productive cough, wheezing, stridor, pain on inspiration, change in phlegm color, hemoptysis or chest congestion GI: Denies: abdominal pain, nausea, vomiting, hematemesis, coffee ground emesis, dysphagia, heartburn, diarrhea, constipation, GI cramping, change in stool character, hematochezia or melena : Denies: flank pain, difficulty voiding, dysuria, urinary frequency, urinary urgency, urinary hesitancy or hematuria Musc: Denies: neck pain, back pain, extremity pain, joint swelling, joint warmth or deformity Neuro: Denies: headache(s), numbness in extremities, weakness in extremities, sensory changes, difficulty walking, frequent falls, dizziness, vertigo, behavioral changes, Slurred speech present or seizure-like activity Psych: Denies: anxiety, depression, suicidal ideation or homicidal ideation Endo: Denies: polyuria, polydipsia, tired all the time, cold intolerance or hot flashes Anthony/Lymph: Denies: easy bruising or easy bleeding Medications/Allergies Home Medications Medication Instructions Recorded Confirmed Last Taken Type insulin degludec 100 unit/mL (3 15 unit SUBCUT BEDTIME 03/05/20 01/06/22 01/05/22 History mL) subcutaneous pen (Tresiba FlexTouch U-100 insulin) oxybutynin chloride 5 mg tablet 5 mg PO BID 03/05/20 01/06/22 01/06/22 History simvastatin 10 mg tablet 10 mg PO DAILY 03/05/20 01/06/22 01/05/22 History gabapentin 300 mg capsule 300 mg PO TID 07/20/21 01/06/22 01/06/22 History metformin 1,000 mg tablet 1,000 mg PO BID 01/06/22 01/06/22 01/06/22 History venlafaxine 37.5 mg tablet 37.5 mg PO DAILY 01/06/22 01/06/22 01/06/22 History Allergies Allergy/AdvReac Type Severity Reaction Status Date / Time Sulfa (Sulfonamide Allergy RASH Verified 08/15/21 14:19 Antibiotics) PFSH Acute PFSH: Surgical History History of cholecystectomy Social History Smoking and tobacco status: never smoked Alcohol intake: never Vitals/I&O/Wt Last Vital Signs Temp 97.0 F L 01/06/22 17:34 Pulse 94 01/06/22 18:22 Resp 16 01/06/22 18:22 BP 92/65 01/06/22 18:22 Pulse Ox 91 01/06/22 18:22 Weight last 48 hrs Weight 56.699 kg Weight 56.699 kg Physical Exam Narrative: GEN: Awake, opens eyes to calling name, tracks my movement with eyes, however does not follow any commands. She is nonverbal. Has a comfort stuffed toy with her at bedside. CVS: S1S2 N RS: CTA B/L anteriorly Abd: Soft, nt/nd , bs+ CLINICAL SOCIAL WORK AIDE: Unable to assess at this time as patient not following commands. Data : 01/07/22 04:51 01/07/22 04:51 Other Labs: Radiology Impressions Chest X-Ray 01/06/22 17:38 IMPRESSION: No acute findings. Head CT 01/06/22 17:38 IMPRESSION: 1. No acute intracranial abnormality. 2. Right mastoid effusion. 3. Marked cerebral atrophy and chronic microvascular white matter disease. Laboratory Results WBC 12.7 10^3/uL (4.0-10.0) H 01/07/22 04:51 RBC 4.91 10^6/uL (4.1-5.3) 01/07/22 04:51 Hgb 15.4 g/dL (11.5-15.3) H 01/07/22 04:51 Hct 50.9 % (37.0-47.0) H 01/07/22 04:51 MCV 103.7 fl (81-99) H 01/07/22 04:51 MCH 31.4 pg (28.0-34.0) 01/07/22 04:51 MCHC 30.3 g/dL (30.0-36.0) 01/07/22 04:51 RDW 13.2 % (12.1-15.1) 01/07/22 04:51 Plt Count 152 10^3/cmm (130-400) 01/07/22 04:51 MPV 14.0 fL (7.4-10.4) H 01/07/22 04:51 Neut % (Auto) 81.9 % 01/07/22 04:51 Lymph % (Auto) 12.1 % 01/07/22 04:51 [place] % (Auto) 4.3 % 01/07/22 04:51 Eos % (Auto) 0.9 % 01/07/22 04:51 Baso % (Auto) 0.4 % 01/07/22 04:51 Neut # (Auto) 10.37 10^3/uL (1.8-7.7) H 01/07/22 04:51 Lymph # (Auto) 1.5 10^3/uL (0.8-4.8) 01/07/22 04:51 [place] # (Auto) 0.5 10^3/uL (0.2-0.9) 01/07/22 04:51 Eos # (Auto) 0.1 10^3/uL (0.0-0.8) 01/07/22 04:51 Baso # (Auto) 0.1 10^3/uL (0.0-0.1) 01/07/22 04:51 Nucleated RBC % (auto) 0 % 01/07/22 04:51 Nucleated RBCs # 0.0 /100WBC 01/07/22 04:51 Sodium 156 mmol/L (136-145) H 01/07/22 04:51 Potassium 4.7 mmol/L (3.5-5.1) 01/07/22 04:51 Chloride 120 mmol/L (98-107) H 01/07/22 04:51 Carbon Dioxide 26 mmol/L (22-29) 01/07/22 04:51 Anion Gap 14.7 (5-19) 01/07/22 04:51 BUN 88 mg/dL (8-23) H* 01/07/22 04:51 Creatinine 1.5 mg/dL (0.5-0.9) H 01/07/22 04:51 GFR Calculation 34.6 mL/min (90-130) L 01/07/22 04:51 Glucose 182 mg/dL (65-115) H 01/07/22 04:51 POC Glucose 157 mg/dL (70-110) H 01/06/22 21:22 Calculated Osmolality 354 mOsm/kg (285-295) H 01/07/22 04:51 Lactic Acid 2.3 mmol/L (0.5-2.2) H 01/06/22 18:20 Lactic Acid (Sepsis) 1.7 mmol/L (0.5-2.2) 01/06/22 20:42 Calcium 9.9 mg/dL (8.5-10.5) 01/07/22 04:51 Magnesium 2.5 mg/dL (1.7-2.3) H 01/06/22 18:20 Total Bilirubin 0.3 mg/dL (0.15-1.2) 01/07/22 04:51 AST 192 U/L (0-32) H 01/07/22 04:51 ALT 288 U/L (0-33) H 01/07/22 04:51 Alkaline Phosphatase 399 IU/L (35-105) H 01/07/22 04:51 Creatine Kinase 47 U/L (26-192) 01/06/22 18:20 Total Protein 6.4 g/dL (6.6-8.7) L 01/07/22 04:51 Albumin 3.5 g/dL (3.5-5.2) 01/07/22 04:51 Globulin 2.9 g/dL (1.3-4.6) 01/07/22 04:51 Lipase 19 U/L (13-60) 01/06/22 18:20 TSH 1.31 uIU/mL (0.27-4.20) 01/07/22 04:51 Urine Color Yellow (Yellow) 01/06/22 18:20 Urine Appearance Hazy (CLEAR) A 01/06/22 18:20 Urine pH 5 (5-7) 01/06/22 18:20 Ur Specific [place] 1.030 (1.005-1.030) 01/06/22 18:20 Urine Protein 1+ (Negative) H 01/06/22 18:20 Urine Glucose (UA) Norm (Normal) 01/06/22 18:20 Urine Ketones Negative (Negative) 01/06/22 18:20 Urine Blood Trace (Negative) H 01/06/22 18:20 Urine Nitrate Negative (Negative) 01/06/22 18:20 Urine Bilirubin 1+ (Negative) H 01/06/22 18:20 Urine Urobilinogen 4 mg/dL (Negative) H 01/06/22 18:20 Ur Leukocyte Esterase 2+ (Negative) H 01/06/22 18:20 Urine RBC 0-4 /hpf (0-2) H 01/06/22 18:20 Urine WBC 15-25 /hpf (0-5) H 01/06/22 18:20 Ur Squamous Epith Cells 0-4 /hpf (0-5) H 01/06/22 18:20 Amorphous Sediment Not Reportable 01/06/22 18:20 Urine Bacteria 4+ /hpf (NONE) H 01/06/22 18:20 Urine Mucus 3+ /hpf 01/06/22 18:20 Hepatitis A IgM Ab Non-reactive (Nonreactive) 01/07/22 04:51 Hep Bs Antigen Non-reactive (Nonreactive) 01/07/22 04:51 Hep Bs Antibody 58.2 (11.5-1000) 01/07/22 04:51 Hep B Core Total Ab Non-reactive (Nonreactive) 01/07/22 04:51 Hepatitis C Antibody Non-reactive (Nonreactive) 01/07/22 04:51 A&P Assessment and plan (1) Adult failure to thrive: Status: Acute (2) Dehydration: Status: Acute (3) Diabetes: Status: Acute (4) Hypernatremia: Status: Acute (5) Altered mental status: Status: Acute (6) UTI (urinary tract infection): Status: Acute Plan 66-year-old lady with known advanced dementia brought to the hospital with family with whom she lives for complaints of increasing generalized weakness, fatigue, failure to thrive worsening over the past week particularly. Multiple electrolyte abnormalities including hypernatremia, hyper chloremia, MIK with creatinine at 1.5 and transaminitis. Suspect that above abnormalities are related to dehydration and poor p.o. intake over the past week. Per daughter patient has had a very poor oral intake over the past week, has only been on pur?ed diet, not drinking enough water. P.o. intake is obviously a concern. We will keep her n.p.o. for now and assess in the a.m. with a swallow evaluation. If patient failed swallow eval may need further work-up with barium swallow and consideration for PEG tube placement. Daughter is in agreement with this plan. In the interim start D5 water at 100 cc an hour for hyper natremia. Recheck sodium in 6 hours. Insulin sliding scale in the interim. Monitor closely her urine output. UA with positive leuk esterase, start ceftriaxone 1 g IV daily empirically. CT head without any acute abnormalities. Marked cerebral atrophy and chronic microvascular white matter disease. Chest x-ray without any gross infiltrates. Attestations Medical Necessity Statement*: Greater than 2 midnight admission is anticipated for correction of electrolyte abnormalities, dehydration, needs IV fluids, assessment for swallow function and possible consideration of PEG placement Coding Level of Care Code Acute Genetic Scientist for Chg Fwd Diagnoses Adult failure to thrive R62.7 Dehydration E86.0 Diabetes E11.9 Hypernatremia E87.0 Altered mental status R41.82 UTI (urinary tract infection) N39.0
[2022-01-07] MEDS: heparin 5,000 unit/mL INJ 1 mL 5000 UNIT SUBCUT ×2 (01:00→13:50)
[2022-01-07 05:03] LABS: Basophils # 0.1 10^3/uL (0.0-0.1); Basophils % 0.4 %; Eosinophils # 0.1 10^3/uL (0.0-0.8); Eosinophils % 0.9 %; Hematocrit 50.9 % (37.0-47.0); Hemoglobin 15.4 g/dL (11.5-15.3); Lymphocytes # 1.5 10^3/uL (0.8-4.8); Lymphocytes % 12.1 %; Mean Corpuscular HGB Conc 30.3 g/dL (30.0-36.0); Mean Corpuscular Hemoglobin 31.4 pg (28.0-34.0); Mean Corpuscular Volume 103.7 fl (81-99); Monocytes # 0.5 10^3/uL (0.2-0.9); Monocytes % 4.3 %; Neutrophils # 10.37 10^3/uL (1.8-7.7); Neutrophils % 81.9 %; Nucleated Red Blood Cells % 0 %; Platelet Count 152 10^3/cmm (130-400); Red Blood Count 4.91 10^6/uL (4.1-5.3); Red Cell Distribution Width 13.2 % (12.1-15.1); White Blood Count 12.7 10^3/uL (4.0-10.0)
[2022-01-07 05:35] LABS: Alanine Aminotransferase 288 U/L (0-33); Albumin Level 3.5 g/dL (3.5-5.2); Alkaline Phosphatase 399 IU/L (35-105); Aspartate Amino Transferase 192 U/L (0-32); Calcium 9.9 mg/dL (8.5-10.5); Carbon Dioxide 26 mmol/L (22-29); Chloride 120 mmol/L (98-107); Globulin 2.9 g/dL (1.3-4.6); Glomerular Filtration Rate 34.6 mL/min (90-130); Glucose 182 mg/dL (65-115); Osmolality Calculated 354 mOsm/kg (285-295); Sodium 156 mmol/L (136-145); Thyroid Stimulating Hormone 1.31 uIU/mL (0.27-4.20); Total Bilirubin 0.3 mg/dL (0.15-1.2); Total Protein 6.4 g/dL (6.6-8.7)
[2022-01-07 05:39] LABS: Anion Gap 14.7 (5-19); Potassium 4.7 mmol/L (3.5-5.1)
[2022-01-07 05:40] LABS: Blood Urea Nitrogen 88 mg/dL (8-23)
[2022-01-07 05:51] LABS: Hepatitis A Antibody IgM Non-Reactive (Nonreactive); Hepatitis B Core AB, Total Non-Reactive (Nonreactive); Hepatitis B Surface AB 58.2 (11.5-1000); Hepatitis B Surface Antigen Non-Reactive (Nonreactive); Hepatitis C Virus Antibody Non-Reactive (Nonreactive)
--- NOTE | 2022-01-07 08:07 | US_ITS ---
WS: [id number] RIGHT UPPER QUADRANT ULTRASOUND HISTORY: new transaminitis COMPARISON: None available. Liver: 14.1 cm in length. Normal size liver with coarse echotexture. Surface of the liver is nodular. No bile duct dilatation. Portal Vein: Normal hepatopetal flow with monophasic waveform. Gallbladder: Not visible. May have been surgically removed. Patient was unable to find this history. CBD: 0.4 cm Pancreas: Completely obscured by bowel gas. Right kidney: 9.5 cm in length. Normal size and echogenicity. No hydronephrosis or mass. Aorta and IVC: Unremarkable abdominal aorta and IVC. No ascites. US/US liver [id number] IMPRESSION: 1. Hepatic echotexture suggesting changes of cirrhosis. No mass. 2. Gallbladder is not identified. May have been surgically removed or contract ed. 3. No bile duct dilatation.
[2022-01-07] MEDS: dextrose 5% 1,000 ML 75 ML IV ×3 (08:19→21:21)
[2022-01-07] MEDS: cefTRIAXone 1,000 MG in sodium chloride 0.9% (plus) 50 ML 100 MG IV (08:29)
[2022-01-07 09:00] LABS: Glucose Point of Care 160 mg/dL (70-110)
--- NOTE | 2022-01-07 10:18 | PC.CHAP ---
xxx Pastoral Care Encounter/Spiritual Assessment Type of Contact [] Declined tag maker visit [] Patient/Family/Request visit [] Outpatient visit [] Follow-up visit [] Physician referral [] Code/Alert [x] Routine visit [] Staff referral [] Actively dying [] Patient sleeping [] Family support [] [] Out of room [] Palliative care [] [x] Receiving care in room [] Pre-surgical visit [] Trauma [] Long length of stay [] ICU visit [] Other: Relational/Emotional Strength [] Patient feels connected with others/family/visitors/staff [] Distress [] Loneliness/isolation [] Abandonment Spirituality of Patient [] Person of Ana [] Attends Rastafarian of their Ana [] Believes in Prayer [] Reads Bible or Yazdanism materials [] There are Spiritual issues to be addressed Real Estate Underwriter Interventions [] Prayer [] Active listening [] Non-anxious presence [] Spiritual/emotional support [] Crisis/trauma care [] Spiritual counseling [] Bereavement support [] Provided bereavement packet [] Provided Bible/devotional materials [] Provided toy/stuffed animal, coloring book to patient or family member [] Provided Communion [] Anointing/[place] [] Salvation [] Completed spiritual assessment [] Other: Impact on Illness or Injury [] Angry [] Fearful [] Anxious [] Often cries [] Exhaustion [] Unable to work [] Unable to attend samaritan [] Unable to walk/stand [] Unable to read [] Unable to drive [] Unable to eat/drink [] Unable to sleep [] Unable to be with family [] Patient intubated [] Other: Summary Time spent with patient
[2022-01-07 12:17] LABS: Alanine Aminotransferase 261 U/L (0-33); Albumin Level 3.5 g/dL (3.5-5.2); Alkaline Phosphatase 376 IU/L (35-105); Aspartate Amino Transferase 132 U/L (0-32); Calcium 9.8 mg/dL (8.5-10.5); Carbon Dioxide 24 mmol/L (22-29); Chloride 119 mmol/L (98-107); Globulin 2.8 g/dL (1.3-4.6); Glomerular Filtration Rate 37.5 mL/min (90-130); Glucose 251 mg/dL (65-115); Iron 35 ug/dL (37-145); Osmolality Calculated 349 mOsm/kg (285-295); Percent Saturation 22.7 % (20-50); Sodium 153 mmol/L (136-145); Total Bilirubin 0.2 mg/dL (0.15-1.2); Total Iron Binding Capacity 154 mcg/dl; Total Protein 6.3 g/dL (6.6-8.7); Unsaturated Iron Binding 119 ug/dL (112-347)
[2022-01-07 12:28] LABS: Anion Gap 14.8 (5-19); Folate Level 3.6 ng/mL (4.8-37.3); Potassium 4.8 mmol/L (3.5-5.1)
[2022-01-07 12:29] LABS: Procalcitonin 0.27 ng/mL (0-0.5); Vitamin B12 1992 pg/mL (232-1245)
[2022-01-07 12:33] LABS: Creatinine Clr Calc Pharmacy 34.1642
--- NOTE | 2022-01-07 12:39 | P.PN_ITS ---
Subjective Subjective: Admitted overnight. Labs reviewed. On examination laying comfortably in bed watching TV. Averbal. Not following commands. But follows with eyes care in the room. Has remained hemodynamically stable and afebrile. Vitals/I&O/Wt Last Vital Signs Temp 98.3 F 01/07/22 12:05 Pulse 75 01/07/22 12:05 Resp 16 01/07/22 12:05 BP 113/76 01/07/22 12:05 Pulse Ox 94 01/07/22 12:05 01/06/22 01/07/22 01/07/22 22:59 06:59 14:59 Intake Total 0 / 0 1122.5 / 1122.5 Balance 0 / 0 1122.5 / 1122.5 Weight last 48 hrs Weight 56.699 kg Weight 56.699 kg Physical Exam Narrative: GEN: Awake, opens eyes to calling name, tracks my movement with eyes, however does not follow any commands. She is nonverbal. Has a comfort stuffed toy with her at bedside. CVS: S1S2 N RS: CTA B/L anteriorly Abd: Soft, nt/nd , bs+ SALES PROGRAM MANAGER: Unable to assess at this time as patient not following commands. Data : 01/07/22 04:51 01/07/22 11:31 A&P Assessment and plan (1) Altered mental status: Status: Acute (2) Hypernatremia: Status: Acute (3) UTI (urinary tract infection): Status: Acute (4) Acute kidney injury: Status: Acute (5) Dehydration: Status: Acute (6) Adult failure to thrive: Status: Acute (7) Diabetes: Status: Acute (8) Hydrocephalus: Status: Acute (9) Transaminitis: Status: Acute Plan 66-year-old lady with known advanced dementia brought to the hospital with family with whom she lives for complaints of increasing generalized weakness, fatigue, failure to thrive worsening over the past week particularly. Found to have hypernatremia, acute kidney injury and transaminitis along with hydrocephalus on CT head. Altered mental status: Most likely a combination of hypernatremia and metabolic encephalopathy secondary to UTI. Check vitamin B12, folate, RPR, ammonia levels. Continue with IV ceftriaxone for now. Follow-up urine culture. Blood cultures sent and so far negative. Check MRSA swab. Hypernatremia: Most likely secondary to poor oral intake and dehydration. Continue with D5W at 75 cc/h. Recheck BMP in evening. Add urine lites to urinalysis from admission. Transaminitis: Liver ultrasound appreciated for mild cirrhosis with possible cholecystitis. Hepatitis panel negative. Check HIV. Acute kidney injury: Again secondary dehydration. Medical reconciliation done for nephrotoxic drugs. Type 2 diabetes mellitus: Check A1c. Insulin sliding scale every 4 hourly as patient is also on D5W. Hydrocephalus: Chronic. Patient does not follow with any neurologist. Will advised to follow-up with neurology as an outpatient for possible SALES REPRESENTATIVE WOM[employer] shunt placement for improvement in lifestyle if possible. Check folate level, vitamin B12, RPR, ammonia levels. Keep n.p.o. for now. Swallow evaluation. Change diet accordingly. Heparin for DVT prophylaxis. Protonix for PUD prophylaxis. Attestations Medical Necessity Statement*: Requires further hospitalization for management of altered mental status, hypernatremia, UTI, acute kidney injury, transaminitis Time Spent in Patient Care: Greater than 35 minutes Coding Level of Care Code Acute Fastener Technologist for Chg Fwd Diagnoses Adult failure to thrive R62.7 Dehydration E86.0 Diabetes E11.9 Hypernatremia E87.0 Altered mental status R41.82 UTI (urinary tract infection) N39.0 Hydrocephalus G91.9 Acute kidney injury N17.9 Transaminitis R74.01
[2022-01-07 12:42] LABS: Glucose Point of Care 228 mg/dL (70-110)
[2022-01-07 12:53] LABS: Blood Urea Nitrogen 82 mg/dL (8-23)
[2022-01-07 13:21] LABS: Potassium, Radom Urine 64 mmol/L; Urine Random Sodium 31 mmol/L
[2022-01-07 13:24] LABS: Urine Random Chloride 19 mmol/L
[2022-01-07] MEDS: insulin lispro 100 unit/1 mL SUBCUT ×2 (13:49→17:19)
[2022-01-07 14:04] LABS: Homocysteine 27.33
[2022-01-07 14:13] LABS: Rapid Plasma Reagin Syphilis Nonreactive (Nonreactive)
[2022-01-07 14:24] LABS: HIV 1 & 2 Antibody Non-Reactive (Non-Reactiv); HIV 1 & 2 Antigen Non-Reactive (Non-Reactiv)
[2022-01-07 14:54] LABS: Glucose Point of Care 234 mg/dL (70-110)
[2022-01-07 14:56] LABS: Glucose Point of Care 209 mg/dL (70-110)
[2022-01-07 17:16] LABS: Glucose Point of Care 215 mg/dL (70-110)
[2022-01-07 18:14] LABS: Anion Gap 13.6 (5-19); Blood Urea Nitrogen 74 mg/dL (8-23); Carbon Dioxide 25 mmol/L (22-29); Chloride 117 mmol/L (98-107); Glomerular Filtration Rate 40.9 mL/min (90-130); Glucose 224 mg/dL (65-115); Osmolality Calculated 341 mOsm/kg (285-295); Potassium 4.6 mmol/L (3.5-5.1); Sodium 151 mmol/L (136-145)
[2022-01-07] MEDS: lactulose oral liq 20 gm/30 mL UDC 10 GM PO (20:51)
[2022-01-07 20:58] LABS: Glucose Point of Care 162 mg/dL (70-110)
[2022-01-08] VITALS (11 sets, daily range): BP systolic 69–120; BP diastolic 38–75; PULSE 68–114; RESP 12–24; TEMP 36.4–37.2; O2SAT 83–96
[2022-01-08 00:42] LABS: Glucose Point of Care 212 mg/dL (70-110)
[2022-01-08] MEDS: insulin lispro 100 unit/1 mL SUBCUT ×4 (00:42→18:11)
[2022-01-08] MEDS: heparin 5,000 unit/mL INJ 1 mL 5000 UNIT SUBCUT ×2 (00:43→13:21)
[2022-01-08 05:59] LABS: Basophils % 0.7 %; Eosinophils # 0.1 10^3/uL (0.0-0.8); Eosinophils % 1.1 %; Hematocrit 47.4 % (37.0-47.0); Hemoglobin 14.8 g/dL (11.5-15.3); Lymphocytes # 0.9 10^3/uL (0.8-4.8); Lymphocytes % 15.3 %; Mean Corpuscular HGB Conc 31.2 g/dL (30.0-36.0); Mean Corpuscular Hemoglobin 31.6 pg (28.0-34.0); Mean Corpuscular Volume 101.1 fl (81-99); Monocytes # 0.3 10^3/uL (0.2-0.9); Monocytes % 5.1 %; Neutrophils # 4.72 10^3/uL (1.8-7.7); Neutrophils % 77.5 %; Nucleated Red Blood Cells % 0 %; Platelet Count 124 10^3/cmm (130-400); Red Blood Count 4.69 10^6/uL (4.1-5.3); Red Cell Distribution Width 13.1 % (12.1-15.1); White Blood Count 6.1 10^3/uL (4.0-10.0)
[2022-01-08 06:03] LABS: Mean Platelet Volume 14.2 fL (7.4-10.4)
[2022-01-08 06:17] LABS: Ammonia 46 umol/L (11-51)
[2022-01-08 06:20] LABS: Glucose Point of Care 230 mg/dL (70-110)
[2022-01-08 06:22] LABS: Estmated Average Glucose 169; Hemoglobin A1C 7.5 % (4.0-6.0)
[2022-01-08 06:59] LABS: Alanine Aminotransferase 189 U/L (0-33); Albumin Level 3.2 g/dL (3.5-5.2); Alkaline Phosphatase 309 IU/L (35-105); Anion Gap 13.9 (5-19); Aspartate Amino Transferase 48 U/L (0-32); Blood Urea Nitrogen 52 mg/dL (8-23); Calcium 9.6 mg/dL (8.5-10.5); Carbon Dioxide 25 mmol/L (22-29); Chloride 110 mmol/L (98-107); Globulin 2.7 g/dL (1.3-4.6); Glomerular Filtration Rate 55.3 mL/min (90-130); Glucose 292 mg/dL (65-115); Osmolality Calculated 325 mOsm/kg (285-295); Potassium 3.9 mmol/L (3.5-5.1); Sodium 145 mmol/L (136-145); Thyroid Stimulating Hormone 1.71 uIU/mL (0.27-4.20); Total Bilirubin 0.3 mg/dL (0.15-1.2); Total Protein 5.9 g/dL (6.6-8.7)
--- NOTE | 2022-01-08 07:32 | PC.NURSE ---
Patient had quiet night with one large incontinent urine. No complaints of pain. Mostly watching tv if not sleeping. Patient does not speak due ot past cva and is incontinent and does not ambulate. Will continue to monitor.
--- NOTE | 2022-01-08 10:36 | PC.CHAP ---
Pastoral Care Encounter/Spiritual Assessment Type of Contact [] Declined awnings mechanic visit [] Patient/Family/Request visit [] Outpatient visit [] Follow-up visit [] Physician referral [] Code/Alert [x] Routine visit [] Staff referral [] Actively dying [] Patient sleeping [] Family support [] [] Out of room [] Palliative care [] [x] Receiving care in room [] Pre-surgical visit [] Trauma [x] Long length of stay [] ICU visit [] Other: Relational/Emotional Strength [] Patient feels connected with others/family/visitors/staff [x] Distress [] Loneliness/isolation [] Abandonment Spirituality of Patient [x] Person of Ana [] Attends Amish of their Ana [x] Believes in Prayer [] Reads Bible or Mormonism materials [] There are Spiritual issues to be addressed Security Intelligence Analyst Interventions [x] Prayer [x] Active listening [x] Non-anxious presence [x] Spiritual/emotional support [] Crisis/trauma care [x] Spiritual counseling [] Bereavement support [] Provided bereavement packet [] Provided Bible/devotional materials [] Provided toy/stuffed animal, coloring book to patient or family member [] Provided Communion [] Anointing/[place] [] Salvation [x] Completed spiritual assessment [] Other: Impact on Illness or Injury [] Angry [x] Fearful [] Anxious [] Often cries [] Exhaustion [x] Unable to work [] Unable to attend restorationism [] Unable to walk/stand [] Unable to read [] Unable to drive [] Unable to eat/drink [] Unable to sleep [] Unable to be with family [] Patient intubated [] Other: Summary negative not sure about her health at this point, +1 daughter Time spent with patient 10 mins
--- NOTE | 2022-01-08 10:50 | PC.NUTR ---
If medically appropriate, recommend consideration of PPN with standard electrolytes and multivitamins to start @ 12 ml/hr and increase by 10 mls/hr Q8H as tolerated until a rate of 42 ml/hr is reached. Also recommend fat emulsion of 250 grams/125 mls to be given for additional kcals and balance of macronutrients. Details in RD assessment.
[2022-01-08 12:15] LABS: Glucose Point of Care 293 mg/dL (70-110)
[2022-01-08] MEDS: dextrose 5% 1,000 ML 75 ML IV (13:20)
--- NOTE | 2022-01-08 15:08 | P.PN_ITS ---
Subjective Subjective: No events overnight. Patient has remained hemodynamically stable and afebrile. Today morning on examination patient lying comfortably in bed with eyes closed. Does not respond to multiple verbal cues but does turn her head on calling out her name and open her eyes but remains averbal. Detailed discussion with daughter over the phone. Vitals/I&O/Wt Last Vital Signs Temp 98.0 F 01/08/22 11:19 Pulse 75 01/08/22 11:19 Resp 16 01/08/22 11:19 BP 109/72 01/08/22 11:19 Pulse Ox 96 01/08/22 11:19 01/08/22 01/08/22 01/08/22 06:59 14:59 22:59 Intake Total 0 / 2122.5 1000 / 1000 Balance 0 / 2122.5 1000 / 1000 Weight last 48 hrs Weight 56.699 kg Weight 56.699 kg Physical Exam Narrative: GEN: Awake, opens eyes to calling name, tracks my movement with eyes, however does not follow any commands. She is nonverbal. Has a comfort stuffed toy with her at bedside. CVS: S1S2 N RS: CTA B/L anteriorly Abd: Soft, nt/nd , bs+ GEM CUTTER: Unable to assess at this time as patient not following commands. Data : 01/08/22 05:47 01/08/22 06:22 Micro: Microbiology 01/06/22 18:20 Urine Culture - Preliminary Urine,Clean Catch Gram Negative Rods A&P Assessment and plan (1) Altered mental status: Status: Acute (2) Hypernatremia: Status: Acute (3) UTI (urinary tract infection): Status: Acute (4) Acute kidney injury: Status: Acute (5) Dehydration: Status: Acute (6) Adult failure to thrive: Status: Acute (7) Diabetes: Status: Acute (8) Hydrocephalus: Status: Acute (9) Transaminitis: Status: Acute Plan 66-year-old lady with known advanced dementia brought to the hospital with family with whom she lives for complaints of increasing generalized weakness, fatigue, failure to thrive worsening over the past week particularly. Found to have hypernatremia, acute kidney injury and transaminitis along with hydrocephalus on CT head. Altered mental status: Most likely a combination of hypernatremia and metabolic encephalopathy secondary to UTI. B12, ammonia, homocystine, RPR, hepatitis panel appreciated normal. Low folate levels are started on folic acid 1 mg twice daily. Continue with IV ceftriaxone for now. Urine culture growing gram-negative rods. Await culture sensitivities. Blood cultures sent and so far negative. Hypernatremia: Resolved. Most likely secondary to poor oral intake and dehydration. Continue with D5W at 75 cc/h. Recheck BMP daily. Transaminitis: Resolving. Liver ultrasound appreciated for mild cirrhosis with possible cholecystitis. Hepatitis panel negative, HIV negative. Acute kidney injury: Resolved. BUN still elevated and trending down. Again secondary dehydration. Medical reconciliation done for nephrotoxic drugs. Type 2 diabetes mellitus: A1c 7.5. Insulin sliding scale every 4 hourly as patient is also on D5W. Hydrocephalus: Chronic. Patient does not follow with any neurologist. Will advised to follow-up with neurology as an outpatient for possible QUALITY ASSURANCE SUPERVISOR TRIM shunt placement for improvement in lifestyle if possible. Goals of care discussion: Had a detailed discussion about treatment plan and goals of care with patient's daughter. As per the daughter patient delivery to go use to walk with a walker, feed herself and take care of her basic ADLs but for last 1 week she has been going downhill. We discussed that patient's are most likely secondary to worsening mentation from possible metabolic encephalopathy from UTI and hypernatremia. Based discussed that her hyponatremia is resolving though she is still on antibiotics for UTI and it might take her at least a week to revert back to her baseline. We also discussed regarding her baseline diet she has hydrocephalus for which she should follow-up with neurologist and possible have QUALITY ASSURANCE SUPERVISOR TRIM shunt placement which can or might improve her baseline gait, mobility, functionality and mentation. Daughter verbalized understanding and would like to follow-up with neurologist as an outpatient. Keep n.p.o. for now. Swallow evaluation. Change diet accordingly. Heparin for DVT prophylaxis. Protonix for PUD prophylaxis. Attestations Medical Necessity Statement*: Requires further hospitalization for management of altered mental status secondary to metabolic encephalopathy from hypernatremia, UTI in setting of baseline hydrocephalus and dementia Time Spent in Patient Care: Greater than 35 minutes Coding Level of Care Code Acute Relay Engineer for [employer] Fwd Diagnoses Altered mental status R41.82 Hypernatremia E87.0 UTI (urinary tract infection) N39.0 Acute kidney injury N17.9 Dehydration E86.0 Adult failure to thrive R62.7 Diabetes E11.9 Hydrocephalus G91.9 Transaminitis R74.01
--- NOTE | 2022-01-08 15:44 | PC.NURSE ---
I reported the low 02 to the nurse
--- NOTE | 2022-01-08 16:17 | XRR_ITS ---
PROCEDURE INFORMATION: Exam: XR Chest Exam date and time: 01/08/2022 4:17 PM Age: 66 years old Clinical indication: Shortness of breath; Additional info: SOB TECHNIQUE: Imaging protocol: XR of the chest. Views: 1 view. COMPARISON: CR (CHEST, ) 01/06/2022 5:44 PM FINDINGS: Lungs: Scattered patulous opacities throughout the left lung and right lung base. Pleural spaces: No pleural effusion. No pneumothorax. Heart/Mediastinum: No cardiomegaly. Bones/joints: Visualized osseous structures are intact. XR/XR chest 1V portable [id number] IMPRESSION: Scattered patulous opacities throughout the left lung and right lung base suspicious for multifocal pneumonia.
[2022-01-08 17:03] LABS: ABG PCO2 29.2 mmHg (35-45); ABG PH Result 7.49 (7.35-7.45); Alveolar-Arterial Oxygen Gradi 6.8 mmHg (5-10); Arterial Blood Gas Hematocrit 45.2 % (37-47); Blood Gas Allen Test Pos; Blood Gas Sample Type Arterial; Carboxyhemoglobin 0.7 %THgb (0.4-20.1); HCO3 ABG 22.2 mmol/L (22-26); HGB O2 Sat 91.8 % (95-100); Ionized Calcium Level - ABG 1.2 mmol/L (1.1-1.4); Oxygen Saturation ABG 93.4; PO2 ABG 60.4 mmHg (80.0-100.0); Potassium Level - ABG 3.8 mmol/L (3.5-5.0); Total Hemoglobin 14.8 g/dL (12-16)
[2022-01-08 17:55] LABS: Glucose Point of Care 296 mg/dL (70-110)
[2022-01-08 17:55] LABS: Glucose Point of Care 310 mg/dL (70-110)
--- NOTE | 2022-01-08 17:57 | PC.SLP ---
Patient's medical status has declined so she was not seen today. Nursing reports patient was more alert when the patient's daughter was present.
[2022-01-08 18:09] LABS: D Dimer 1.66 ug/mIFEU (0-0.59)
--- NOTE | 2022-01-08 18:20 | CTR_ITS ---
PROCEDURE INFORMATION: Exam: CTA Chest With Contrast Exam date and time: 01/08/2022 6:20 PM Age: 66 years old Clinical indication: Abnormal findings; Abnormal diagnostic tests; Elevated d-dimer; Additional info: Possible pe, elevated dimer, hypoxia TECHNIQUE: Imaging protocol: Computed tomographic angiography of the chest with contrast. 3D rendering (Not supervised by radiologist): MIP and/or 3D reconstructed images were created by the technologist. Radiation optimization: All CT scans at this facility use at least one of these dose optimization techniques: automated exposure control; mA and/or kV adjustment per patient size (includes targeted exams where dose is matched to clinical indication); or iterative reconstruction. Contrast material: OMNI 350; Contrast volume: 52 ml; Contrast route: INTRAVENOUS (IV); COMPARISON: CR (CHEST, ) 01/08/2022 4:27 PM RADIATION DOSE METRICS: Total DLP (mGy-cm): 526.42 FINDINGS: Pulmonary arteries: Normal. No pulmonary emboli. Aorta: Unremarkable. No aortic aneurysm. No aortic dissection. Lungs: Multifocal patchy parenchymal airspace opacities in both lungs. Mild to moderate severity emphysema. No peripheral honeycombing. No bronchiectasis. Pleural spaces: Unremarkable. No pneumothorax. No pleural effusion. Heart: Unremarkable. No cardiomegaly. No pericardial effusion. Lymph nodes: Partially calcified mildly enlarged subcarinal lymph node. Lymph node measures 2.8 cm x 1.9 cm. Bones/joints: Unremarkable. No acute fracture. Soft tissues: Unremarkable. CT/CT angio chest PE protcl [id number] IMPRESSION: 1. Negative for pulmonary embolism. 2. Multifocal pneumonia process.
[2022-01-08 18:24] LABS: Glucose Point of Care 297 mg/dL (70-110)
[2022-01-08] MEDS: enoxaparin 60 mg/0.6 mL Syringe SUBCUT (18:34)
[2022-01-08 21:07] LABS: Glucose Point of Care 196 mg/dL (70-110)
[2022-01-08 23:12] LABS: NT Pro B Type Natriuretic Pept 87 pg/mL (0-125)
[2022-01-08] MEDS: iohexol 350 mg/mL 100 mL Btl IV (23:30)
[2022-01-09] VITALS (13 sets, daily range): BP systolic 95–132; BP diastolic 44–70; PULSE 74–101; RESP 18–24; TEMP 36.2–37.2; O2SAT 91–100
--- NOTE | 2022-01-09 | USCV_ITS ---
Transthoracic Echo Melba Zee Age: 66 Gender: F : 1955 Exam Date: 01/09/2022 03:13 Ordering Phys: Mahesh Chi MD Technologist: Philip Gillis Exam Location: [facility] – [place] Indication: EF / RT Heart Strain BP: 120 / 75 HR: 113 Rhythm: Sinus Technical Quality: Suboptimal MEASUREMENTS (Male / Female) Normal Values 2D ECHO LV Diastolic Diameter PLAX 2.7 cm 4.2 - 5.9 / 3.9 - 5.3 cm LV Systolic Diameter PLAX 0.9 cm IVS Diastolic Thickness 1.1 cm 0.6 - 1.0 / 0.6 - 0.9 cm IVS Systolic Thickness 1.1 cm LVPW Diastolic Thickness 1.1 cm 0.6 - 1.0 / 0.6 - 0.9 cm LVPW Systolic Thickness 1.3 cm LVOT Diameter 2.1 cm LV Ejection Fraction 2D Teich 94.8 % LV Ejection Fraction MOD 2C 51.2 % LV Ejection Fraction 2C AL 54.4 % LA Diameter 2.3 cm LA Width 2.3 cm LA Height 3.9 cm RA Width 3.0 cm RA Height 2.1 cm Aorta at Sinotubular Diameter 2.6 cm M-MODE Aortic Annulus Diameter 2.6 cm LA Ao Ratio MM 1.0 MV E Point Septal Separation 0.7 cm DOPPLER AV Peak Velocity 115.0 cm/s LVOT Peak Velocity 73.0 cm/s AV Area Cont Eq vti 2.2 cm squared AV Area Cont Eq pk 2.2 cm squared MV Peak Velocity 59.0 cm/s MV Area PHT 2.6 cm squared Mitral E to A Ratio 0.9 MV E' Velocity 26.5 cm/s Mitral E to MV E' Ratio 8.6 Mitral E to LV E' Lateral Ratio 6.3 Mitral E to LV E' Septal Ratio 14.3 TR Peak Velocity 87.0 cm/s TR Peak Gradient 3.0 mmHg TR Mean Velocity 54.4 cm/s TR Mean Gradient 1.4 mmHg TR Velocity Time Integral 12.7 cm Right Atrial Pressure 10.0 mmHg Pulmonary Artery Systolic Pressu 13.0 mmHg PV Peak Velocity 100.0 cm/s RV Acceleration Time 0.1 s RV Ejection Time 0.2 s RV AcT/ET 0.4 FINDINGS Left Ventricle Normal left ventricular size. LV systolic function is normal with EF of 55-60%.No regional wall motion abnormalities. Grade 1 diastolic dysfunction Right Ventricle The right ventricle is normal in size and function. Right Atrium The right atrium is normal in size. Left Atrium The left atrium is normal in size. Mitral Valve Grossly normal. Aortic Valve Grossly normal. No significant stenosis or aortic regurgitation noted. Tricuspid Valve Grossly normal. Pulmonic Valve Not well-visualized Pericardium Normal pericardium without effusion. Aorta Normal ascending aorta dimension. CONCLUSIONS Technically limited quality echocardiogram because of poor ultrasonic windows. LV systolic function is normal with EF of 55 to 60%. Grade 1 diastolic dysfunction. Right ventricle is normal in size and function. No gross valvular abnormalities seen. No comparison studies are available. Ronal Gleason MD (Electronically Signed) Final Date: 09 January 2022 12:15 S
[2022-01-09 00:07] LABS: Glucose Point of Care 193 mg/dL (70-110)
[2022-01-09] MEDS: insulin lispro 100 unit/1 mL SUBCUT ×4 (00:08→23:12)
[2022-01-09] MEDS: cefTRIAXone 1,000 MG in sodium chloride 0.9% (plus) 50 ML 100 MG IV (00:14)
[2022-01-09 03:21] LABS: Glucose Point of Care 201 mg/dL (70-110)
[2022-01-09 06:01] LABS: Hemoglobin 13.4 g/dL (11.5-15.3); Mean Corpuscular HGB Conc 31.9 g/dL (30.0-36.0); Mean Corpuscular Hemoglobin 31.2 pg (28.0-34.0); Mean Corpuscular Volume 97.7 fl (81-99); Mean Platelet Volume 14.3 fL (7.4-10.4); Platelet Count 120 10^3/cmm (130-400); Red Cell Distribution Width 13.1 % (12.1-15.1); White Blood Count 9.4 10^3/uL (4.0-10.0)
[2022-01-09 06:20] LABS: Alanine Aminotransferase 149 U/L (0-33); Albumin Level 2.5 g/dL (3.5-5.2); Alkaline Phosphatase 271 IU/L (35-105); Anion Gap 15.8 (5-19); Aspartate Amino Transferase 79 U/L (0-32); Blood Urea Nitrogen 52 mg/dL (8-23); Calcium 9.2 mg/dL (8.5-10.5); Carbon Dioxide 23 mmol/L (22-29); Chloride 107 mmol/L (98-107); Globulin 3.3 g/dL (1.3-4.6); Glomerular Filtration Rate 49.5 mL/min (90-130); Glucose 174 mg/dL (65-115); Osmolality Calculated 312 mOsm/kg (285-295); Potassium 3.8 mmol/L (3.5-5.1); Sodium 142 mmol/L (136-145); Total Bilirubin 0.2 mg/dL (0.15-1.2); Total Protein 5.8 g/dL (6.6-8.7)
[2022-01-09 06:29] LABS: Glucose Point of Care 148 mg/dL (70-110)
[2022-01-09] MEDS: enoxaparin 60 mg/0.6 mL Syringe SUBCUT (06:32)
[2022-01-09 07:16] LABS: Slide Review Slide Review Perform
[2022-01-09 07:17] LABS: Absolute Neutrophil 7.5 10^3/cmm (1.4-6.5); Absolute Segmented Neutrophil 4.1 10/cmm (1.6-7.1); Band Neutrophils Absolute 3.4 10^3/cmm (0.0-1.2); Eosinophils 0 %; Lymphocytes 12 %; Lymphocytes Absolute 1.1 10^3/cmm (1.2-3.4); Monocytes Absolute 0.5 10^3/cmm (0.1-0.6); Platelet Estimate Decreased (Normal); Segmented Neutrophils 44 %; Total Cells Counted 100 (0-100)
[2022-01-09 07:18] LABS: Giant Platelets Trace
[2022-01-09] MEDS: ipratropium-albuterol 3 mL Neb INHALATION ×2 (08:32→16:30)
--- NOTE | 2022-01-09 10:47 | ANES.PREANE2 ---
Documented by User: Aline Vasquez CRNA 01/09/22 10:56 Pre-Anesthetic Assessment Height/Weight: Height 1.63 m Weight 56.699 kg Temp Pulse Resp BP Pulse Ox 98.8 F 78 18 132/70 93 01/09/22 07:52 01/09/22 08:45 01/09/22 08:19 01/09/22 07:52 01/09/22 08:45 Preop Diagnosis: aspiration Operation Date: 01/09/22 10:00 Proposed Procedures p PEG Tube Insertion(Not Applicable) - Luis Kimbrough MD s EGD(Not Applicable) - Luis Kimbrough MD Last intake: attempted to feed patient yesterday failed swallow evaluation. Exam regular rate & rhythm coarse breath sounds 94% on 6L O2. Patient encephalopathic hydrocephalus advanced stage dementia Airway Submandibular: within normal limits Cervical ROM: within normal limits Comments: Comments: KYUNG dentition appears to have no teeth, and will not open mouth for mallampati exam. good TM distance. Pulmonary Aspiration Suspected 6L NC CV/HEM no cardiac history identified patient non-verbal. UTI MIK Hepatic Transaminitis, elevated liver enzymes. - hepatitis and HIV panels. Metabolic Diabetes Mellitus and Hyperlipidemia [facility] [place] generalized weakness failure to thrive. dehydration. Neuropsych Dementia advanced stage dementia non-verbal progressing loss of mentation hydrocephalus identified and diagnosis with failure to thrive. Anesthetic Plan Other: spoke with deanna her daughter regarding risk of anesthesia agreed to proceed. Medications/Allergies Home Medications Medication Instructions Recorded Confirmed Last Taken Type insulin degludec 100 unit/mL (3 15 unit SUBCUT BEDTIME 03/05/20 01/06/22 01/05/22 History mL) subcutaneous pen (Tresiba FlexTouch U-100 insulin) oxybutynin chloride 5 mg tablet 5 mg PO BID 03/05/20 01/06/22 01/06/22 History simvastatin 10 mg tablet 10 mg PO DAILY 03/05/20 01/06/22 01/05/22 History gabapentin 300 mg capsule 300 mg PO TID 07/20/21 01/06/22 01/06/22 History metformin 1,000 mg tablet 1,000 mg PO BID 01/06/22 01/06/22 01/06/22 History venlafaxine 37.5 mg tablet 37.5 mg PO DAILY 01/06/22 01/06/22 01/06/22 History Allergies Allergy/AdvReac Type Severity Reaction Status Date / Time Sulfa (Sulfonamide Allergy RASH Verified 08/15/21 14:19 Antibiotics) Current Medications Generic Name Dose Route Start Last Admin Trade Name Freq PRN Reason Stop Dose Admin Albuterol/Ipratropium 3 ml 01/08/22 16:50 01/09/22 08:32 Ipratropium-Albuterol 3 Ml Neb INHALATION 3 ml Q6H PRN Administration SHORTNESS OF BREATH Folic Acid 1 mg 01/07/22 18:00 01/09/22 10:37 Folic Acid 1 Mg Tablet PO Not Given BID MEG Heparin Sodium (Porcine) 5,000 unit 01/09/22 07:30 01/09/22 10:37 Heparin 5,000 Unit/Ml Inj 1 Ml SUBCUT Not Given Q12H MEG Insulin Human Lispro 0 unit 01/07/22 11:00 01/09/22 06:32 Insulin Lispro 100 Unit/1 Ml SUBCUT 2 unit Q4H MEG Administration Protocol Oxybutynin Chloride 5 mg 01/07/22 18:00 01/09/22 10:37 Oxybutynin 5 Mg Tablet PO Not Given BID MEG Venlafaxine HCl 37.5 mg 01/07/22 09:00 01/09/22 10:38 Venlafaxine 75 Mg Tablet PO Not Given DAILY MEG PFSH Anesthesia Medical History Dementia Diabetes HLD (hyperlipidemia) Hydrocephalus Hypertension Surgical History History of cholecystectomy Social History Smoking and tobacco status: never smoked Alcohol intake: never Data Anesthesia : 01/09/22 05:50 01/09/22 05:50 Short CBC 01/08/22 01/09/22 Range/Units 05:47 05:50 WBC 6.1 9.4 (4.0-10.0) 10^3/uL Hgb 14.8 13.4 (11.5-15.3) g/dL Hct 47.4 H 42.0 (37.0-47.0) % MCV 101.1 H 97.7 (81-99) fl Plt Count 124 L 120 L (130-400) 10^3/cmm Neut % (Auto) 77.5 % Neut # (Auto) 4.72 (1.8-7.7) 10^3/uL BMP 01/07/22 01/07/22 01/08/22 11:31 17:00 05:47 Sodium 153 H 151 H Cancelled Potassium 4.8 4.6 Cancelled Chloride 119 H 117 H Cancelled Carbon Dioxide 24 25 Cancelled BUN 82 H* 74 H Cancelled Creatinine 1.4 H 1.3 H Cancelled Glucose 251 H 224 H Cancelled Calcium 9.8 10.0 Cancelled 01/08/22 01/09/22 06:22 05:50 Sodium 145 142 Potassium 3.9 3.8 Chloride 110 H 107 Carbon Dioxide 25 23 BUN 52 H 52 H Creatinine 1.0 H 1.1 H Glucose 292 H 174 H Calcium 9.6 9.2 Cardiac Enzymes 01/08/22 Range/Units 06:22 NT-Pro-B Natriuret Pep 87 (0-125) pg/mL Liver Function 01/07/22 01/08/22 01/08/22 Range/Units 11:31 05:47 06:22 Total Bilirubin 0.2 Cancelled 0.3 (0.15-1.2) mg/dL AST 132 H Cancelled 48 H (0-32) U/L ALT 261 H Cancelled 189 H (0-33) U/L Alkaline Phosphatase 376 H Cancelled 309 H (35-105) IU/L Albumin 3.5 Cancelled 3.2 L (3.5-5.2) g/dL 01/09/22 Range/Units 05:50 Total Bilirubin 0.2 (0.15-1.2) mg/dL AST 79 H (0-32) U/L ALT 149 H (0-33) U/L Alkaline Phosphatase 271 H (35-105) IU/L Albumin 2.5 L (3.5-5.2) g/dL Coags 01/08/22 17:20 D-Dimer 1.66 H ABG 01/08/22 16:53 Specimen Type Arterial ABG pH 7.49 H ABG pCO2 29.2 L ABG pO2 60.4 L ABG HCO3 22.2 ABG O2 Saturation 93.4 ABG Base Excess 0.0 A-a O2 Gradient 6.8 Microbiology 01/07/22 16:00 MRSA Culture - Final Nose 01/06/22 18:20 Urine Culture - Preliminary Urine,Clean Catch Gram Negative Rods Cardiac Studies: No Data to Display Documented by User: Ryder Baker DO 01/09/22 11:23 Pre-Anesthetic Assessment Anesthetic Plan ASA status: 3 Medications/Allergies Home Medications Medication Instructions Recorded Confirmed Last Taken Type insulin degludec 100 unit/mL (3 15 unit SUBCUT BEDTIME 03/05/20 01/06/22 01/05/22 History mL) subcutaneous pen (Tresiba FlexTouch U-100 insulin) oxybutynin chloride 5 mg tablet 5 mg PO BID 03/05/20 01/06/22 01/06/22 History simvastatin 10 mg tablet 10 mg PO DAILY 03/05/20 01/06/22 01/05/22 History gabapentin 300 mg capsule 300 mg PO TID 07/20/21 01/06/22 01/06/22 History metformin 1,000 mg tablet 1,000 mg PO BID 01/06/22 01/06/22 01/06/22 History venlafaxine 37.5 mg tablet 37.5 mg PO DAILY 01/06/22 01/06/22 01/06/22 History Allergies Allergy/AdvReac Type Severity Reaction Status Date / Time Sulfa (Sulfonamide Allergy RASH Verified 08/15/21 14:19 Antibiotics) [facility] Anesthesia Medical History Dementia Diabetes HLD (hyperlipidemia) Hydrocephalus Hypertension Surgical History History of cholecystectomy Social History Smoking and tobacco status: never smoked Alcohol intake: never Data Anesthesia : 01/09/22 05:50 01/09/22 05:50 Cardiac Studies: No Data to Display
[2022-01-09] MEDS: sodium chloride 0.9% 1,000 ML 30 ML IV (11:10)
--- NOTE | 2022-01-09 11:14 | PM.CONSULT ---
Providers/Reason For Consult Consulting Physician/Specialty*: Dr. Johnson Reason for Consult*: PEG placement Attending Physician: Mahesh Chi MD Primary Care Provider: GIOVANNI SILVEIRA MD History of Present Illness History of Present Illness Melab Zee is a 66 year old female who was brought to the ER last night by her daughter who is her primary caregiver as the patient has slowly been deteriorating with regard to her mental status. Patient was noted to have multiple electrolyte abnormalities and was also diagnosed with aspiration pneumonia. Patient has been on a pur?ed diet. As per the daughter patient has not had any gastric surgery Review of Systems General: Reports: ROS unobtainable due to mental status Medications/Allergies Home Medications Medication Instructions Recorded Confirmed Last Taken Type insulin degludec 100 unit/mL (3 15 unit SUBCUT BEDTIME 03/05/20 01/06/22 01/05/22 History mL) subcutaneous pen (Tresiba FlexTouch U-100 insulin) oxybutynin chloride 5 mg tablet 5 mg PO BID 03/05/20 01/06/22 01/06/22 History simvastatin 10 mg tablet 10 mg PO DAILY 03/05/20 01/06/22 01/05/22 History gabapentin 300 mg capsule 300 mg PO TID 07/20/21 01/06/22 01/06/22 History metformin 1,000 mg tablet 1,000 mg PO BID 01/06/22 01/06/22 01/06/22 History venlafaxine 37.5 mg tablet 37.5 mg PO DAILY 01/06/22 01/06/22 01/06/22 History Allergies Allergy/AdvReac Type Severity Reaction Status Date / Time Sulfa (Sulfonamide Allergy RASH Verified 08/15/21 14:19 Antibiotics) Current Medications Generic Name Dose Route Start Last Admin Trade Name Freq PRN Reason Stop Dose Admin Albuterol/Ipratropium 3 ml 01/08/22 16:50 01/09/22 08:32 Ipratropium-Albuterol 3 Ml Neb INHALATION 3 ml Q6H PRN Administration SHORTNESS OF BREATH Folic Acid 1 mg 01/07/22 18:00 01/09/22 10:37 Folic Acid 1 Mg Tablet PO Not Given BID MEG Heparin Sodium (Porcine) 5,000 unit 01/09/22 07:30 01/09/22 10:37 Heparin 5,000 Unit/Ml Inj 1 Ml SUBCUT Not Given Q12H MEG Sodium Chloride 1,000 mls @ 30 mls/hr 01/09/22 11:00 01/09/22 11:10 Sodium Chloride 0.9% IV 01/10/22 10:59 30 mls/hr .Q24H MEG Administration Insulin Human Lispro 0 unit 01/07/22 11:00 01/09/22 06:32 Insulin Lispro 100 Unit/1 Ml SUBCUT 2 unit Q4H MEG Administration Protocol Oxybutynin Chloride 5 mg 01/07/22 18:00 01/09/22 10:37 Oxybutynin 5 Mg Tablet PO Not Given BID MEG Venlafaxine HCl 37.5 mg 01/07/22 09:00 01/09/22 10:38 Venlafaxine 75 Mg Tablet PO Not Given DAILY MEG PFSH Acute PFSH: Medical History Dementia Diabetes HLD (hyperlipidemia) Hydrocephalus Hypertension Surgical History History of cholecystectomy Social History Smoking and tobacco status: never smoked Alcohol intake: never Vitals/I&O/Wt Last Vital Signs Temp 97.2 F L 01/09/22 10:45 Pulse 82 01/09/22 10:45 Resp 20 H 01/09/22 10:45 BP 105/61 01/09/22 10:45 Pulse Ox 98 01/09/22 10:45 01/08/22 01/09/22 01/09/22 22:59 06:59 14:59 Intake Total 375 / 1425 50 / 1425 Output Total 0 / 0 Balance 375 / 1425 50 / 1425 Physical Exam Narrative: HEENT: Normocephalic Eye: Sclera /conjunctiva normal Abdomen: Soft to palpation, well-healed laparoscopy scars Neurological: Oriented to place person and time Skin: Intact, no lesions appreciated on gross exam Data : 01/09/22 05:50 01/09/22 05:50 Micro: Microbiology 01/07/22 16:00 MRSA Culture - Final Nose 01/06/22 18:20 Urine Culture - Preliminary Urine,Clean Catch Gram Negative Rods A&P Assessment and plan (1) Adult failure to thrive: 66-year-old female with dementia, weakness and aspiration pneumonia who needs enteral access for nutrition. Plan for PEG tube placement under MAC today Procedure, risks, benefits and alternatives have been discussed with the patient's daughter who wishes to proceed with surgery. Status: Acute Coding Level of Care Code Acute Air And Hydronic Balancing Technician for Chg Fwd Diagnoses Adult failure to thrive R62.7
--- NOTE | 2022-01-09 12:00 | P.OP_ITS ---
Operative Report Date of procedure: January 09, 2022 Pre-op diagnosis: 1. Protein calorie malnutrition 2. Aspiration pneumonia Post-op diagnosis: 1. Protein calorie malnutrition 2. Gastritis and gastric erosions involving the body and antrum Procedure done: Endoscopic percutaneous placement of 20 [place] [employer] Endoview gastrostomy tube using pull technique Pathology: none sent Surgeon: Luis Kimbrough Anesthesia: MAC Procedure: The patient was taken to the Operating Room and was placed under monitored anesthesia care after antibiotic had been administered. A bite block was placed and Olympus gastroscope was introduced and advanced up to the stomach and the first portion of the duodenum. There were no abnormalities noted in the esophagus and duodenum there was gastritis and gastric erosions noted in the b saturnino and antrum of the stomach. The site for the planned PEG was confirmed in the left upper quadrant with transillumination using gastroscope noted through the abdominal wall and indentation of the abdominal wall noted on the gastroscope. This site was marked, and total of 5 milliliters of 1% lidocaine was infiltrated. An 11-blade was used to make a stab incision. An introducer needle was passed through the abdominal wall into the gastric lumen and the needle removed and the needle removed and the sheath left behind. A guidewire was passed through the introducer needle into the gastric lumen and grasped with a snare attached to the gastroscope. The gastroscope was withdrawn along with the guidewire, which was attached to the 20-[place] EndoVive PEG tube. The guidewire was then pulled through the abdominal wall along with the PEG through the mouth into the gastric lumen until the inner disc was noted to stand against the gastric wall. The gastroscope was reintroduced to confirm good position. The outer disc was then attached and the two way valve was fixed to the PEG tube. The outer disc was noted to be at 4 centimeters at the skin level. Sterile dressing and abdominal binder was placed. The patient was stable throughout the procedure.
--- NOTE | 2022-01-09 13:06 | PC.NUTR ---
Consult for TF received. When medically appropriate, recommend consideration of Glucerna 1.2 beginning at 15 mls/hr, increasing 10 mls/hr Q8H as tolerated to a goal rate of 35 mls/hr with 100 mls flushes Q4H or per MD discretion. Details in RD assessment.
[2022-01-09 13:13] LABS: Glucose Point of Care 111 mg/dL (70-110)
--- NOTE | 2022-01-09 13:30 | PC.SOCIAL ---
Pg 2 IMM Explained to pt/family Pg 2 IMM. No questions voiced. Provided pt a copy. Initialed, dated, & timed a copy & placed in chart.
--- NOTE | 2022-01-09 13:51 | ANE.PACU2 ---
Inpatient post-anesthesia follow up: Airway intact: Yes Vital signs: Temperature 97.4 F Pulse Rate 97 Respiratory Rate 18 Blood Pressure 100/63 Pulse Oximetry 94 Oxygen Delivery Me thod [Rate & Oxymask Delivery Changed T o] Oxygen Delivery Me thod [ Room Air Current Rate & Del festus] Oxygen Delivery Me thod Nasal Cannula Oxygen Flow Rate [ Rate & 15 Delivery Changed T o] Oxygen Flow Rate [ Current Rate 2 & Delivery] Oxygen Flow Rate 6 Fraction of Inspir ed Oxygen 6 Hydration adequate: Yes Nausea and vomiting: No Pain level: 1 Mental status: Baseline
--- NOTE | 2022-01-09 14:54 | PM.PN ---
Subjective Subjective: Yesterday in the evening patient's oxygen requirement suddenly went up. She required up to 10 to 12 L oxygen mask to maintain saturation over 92%. As per the nurse prior to the event patient was seen trying to be fed. ABG was done which was concerning for hypoxia and hypercapnia so CTA was done to rule out PE. CT was concerning for bilateral pneumonia most likely from aspiration. Today morning on examination patient's oxygen saturation has been stable on 5 L oxygen through nasal cannula. She has remained afebrile and hemodynamically stable. There is a blood pressure charting of 69 systolic but I have been told that was by error Vitals/I&O/Wt Last Vital Signs Temp 97.4 F L 01/09/22 13:36 Pulse 97 01/09/22 13:36 Resp 18 01/09/22 13:36 BP 100/63 01/09/22 13:36 Pulse Ox 94 01/09/22 13:36 01/08/22 01/09/22 01/09/22 22:59 06:59 14:59 Intake Total 375 / 1375 50 / 1425 500 / 500 Output Total 0 / 0 Balance 375 / 1375 50 / 1425 500 / 500 Physical Exam Narrative: GEN: Awake, opens eyes to calling name, tracks my movement with eyes, however does not follow any commands. She is nonverbal. Has a comfort stuffed toy with her at bedside. CVS: S1S2 N RS: CTA B/L anteriorly Abd: Soft, nt/nd , bs+ CUSTOMS COMPLIANCE SPECIALIST: Unable to assess at this time as patient not following commands. Data : 01/09/22 05:50 01/09/22 05:50 Micro: Microbiology 01/06/22 18:20 Urine Culture - Final Urine,Clean Catch Escherichia coli 01/07/22 16:00 MRSA Culture - Final Nose A&P Assessment and plan (1) Hypoxia: Status: Acute (2) Aspiration pneumonitis: Status: Acute (3) Altered mental status: Status: Acute (4) Hypernatremia: Status: Acute (5) UTI (urinary tract infection): Status: Acute (6) Acute kidney injury: Status: Acute (7) Dehydration: Status: Acute (8) Adult failure to thrive: Status: Acute (9) Diabetes: Status: Acute (10) Hydrocephalus: Status: Acute (11) Transaminitis: Status: Acute (12) Protein-energy malnutrition: Status: Acute Plan 66-year-old lady with known advanced dementia brought to the hospital with family with whom she lives for complaints of increasing generalized weakness, fatigue, failure to thrive worsening over the past week particularly. Found to have hypernatremia, acute kidney injury and transaminitis along with hydrocephalus on CT head. Hypoxia: Secondary to possible aspiration pneumonia. PE ruled out. proBNP normal. Check COVID-19 PCR. Though unlikely. Check MRSA swab. Check procalcitonin. For now continue with Zosyn. Continue to wean down oxygen keeping saturation over 88%. Chest vest. Discussed in detail with patient's daughter/DPOA. Discussed that patient is at high risk of aspiration given mentation which is also poor at baseline. She is agreeable for PEG tube placement. Surgery consulted. Altered mental status: Most likely a combination of hypernatremia and metabolic encephalopathy secondary to UTI. B12, ammonia, homocystine, RPR, hepatitis panel appreciated normal. Low folate levels are started on folic acid 1 mg twice daily. Zosyn should cover for UTI as well. Urine culture growing E. coli resistant to levofloxacin. Day 3/5 of antibiotic directed treatment Blood cultures sent and so far negative. Hypernatremia: Resolved. Most likely secondary to poor oral intake and dehydration. Continue with D5W at 75 cc/h. Recheck BMP daily. Transaminitis: Resolving. Liver ultrasound appreciated for mild cirrhosis with possible cholecystitis. Hepatitis panel negative, HIV negative. Acute kidney injury: Resolved. BUN still elevated and trending down. Again secondary dehydration. Medical reconciliation done for nephrotoxic drugs. Type 2 diabetes mellitus: A1c 7.5. Insulin sliding scale every 4 hourly as patient is also on D5W. Hydrocephalus: Chronic. Patient does not follow with any neurologist. Will advised to follow-up with neurology as an outpatient for possible TUFT MACHINE OPERATOR shunt placement for improvement in lifestyle if possible. Goals of care discussion: Had a detailed discussion about treatment plan and goals of care with patient's daughter. As per the daughter patient delivery to go use to walk with a walker, feed herself and take care of her basic ADLs but for last 1 week she has been going downhill. We discussed that patient's are most likely secondary to worsening mentation from possible metabolic encephalopathy from UTI and hypernatremia. Based discussed that her hyponatremia is resolving though she is still on antibiotics for UTI and it might take her at least a week to revert back to her baseline. We also discussed regarding her baseline diet she has hydrocephalus for which she should follow-up with neurologist and possible have TUFT MACHINE OPERATOR shunt placement which can or might improve her baseline gait, mobility, functionality and mentation. Daughter verbalized understanding and would like to follow-up with neurologist as an outpatient. PEG tube placement. Tube feeds post PEG tube placement. Heparin for DVT prophylaxis. Protonix for PUD prophylaxis. Attestations Medical Necessity Statement*: Requires further hospitalization for management of altered mental status in setting of UTI, hypernatremia with baseline severe dementia, hydrocephalus, aspiration pneumonia requiring PEG tube placement Time Spent in Patient Care: Greater than 35 minutes Coding Level of Care Code Acute Strategic Planning Consultant for g Fwd Diagnoses Altered mental status R41.82 Hypernatremia E87.0 UTI (urinary tract infection) N39.0 Acute kidney injury N17.9 Dehydration E86.0 Adult failure to thrive R62.7 Diabetes E11.9 Hydrocephalus G91.9 Transaminitis R74.01 Aspiration pneumonitis J69.0 Hypoxia R09.02 Protein-energy malnutrition E46
[2022-01-09] MEDS: piperacillin-tazobactam 3.375 GM in sodium chloride 0.9% (plus) 50 ML IV ×2 (15:41→22:50)
[2022-01-09 19:13] LABS: Adenovirus Not Detected (NOT DETECT); Chlamydia Pneumoniae Not Detected (NOT DETECT); Coronavirus 229E,HKU1,NL63,OC4 Not Detected (NOT DETECT); Human Metapneumovirus Not Detected (NOT DETECT); Human Rhinovirus/Enterovirus Not Detected (NOT DETECT); Influenza A Not Detected (NOT DETECT); Influenza A H1 Not Detected (NOT DETECT); Influenza A H1-2009 Not Detected (NOT DETECT); Influenza A H3 Not Detected (NOT DETECT); Influenza B Not Detected (NOT DETECT); Mycoplasma Pneumoniae Not Detected (NOT DETECT); Parainfluenza Virus Type 1 Not Detected (NOT DETECT); Parainfluenza Virus Type 2 Not Detected (NOT DETECT); Parainfluenza Virus Type 3 Not Detected (NOT DETECT); Parainfluenza Virus Type 4 Not Detected (NOT DETECT); Respiratory Syncytial Virus A Not Detected (NOT DETECT); Respiratory Syncytial Virus B Not Detected (NOT DETECT); SARS-COV-2 Not Detected (NOT DETECT)
[2022-01-09] MEDS: heparin 5,000 unit/mL INJ 1 mL 5000 UNIT SUBCUT (20:00)
[2022-01-09 20:52] LABS: Glucose Point of Care 134 mg/dL (70-110)
[2022-01-09 21:17] LABS: Glucose Point of Care 177 mg/dL (70-110)
[2022-01-10] VITALS (10 sets, daily range): BP systolic 91–138; BP diastolic 50–77; PULSE 70–118; RESP 16–18; TEMP 36.6–38.4; O2SAT 80–98
[2022-01-10 03:31] LABS: Glucose Point of Care 159 mg/dL (70-110)
[2022-01-10 06:36] LABS: Glucose Point of Care 134 mg/dL (70-110)
[2022-01-10] MEDS: piperacillin-tazobactam 3.375 GM in sodium chloride 0.9% (plus) 50 ML IV ×3 (06:51→22:51)
[2022-01-10] MEDS: ipratropium-albuterol 3 mL Neb INHALATION (08:17)
--- NOTE | 2022-01-10 08:30 | P.PN_ITS ---
Subjective Subjective: Patient is asleep, arousable Vitals/I&O/Wt Last Vital Signs Temp 98.0 F 01/10/22 08:00 Pulse 86 01/10/22 08:25 Resp 16 01/10/22 08:17 BP 120/50 01/10/22 08:00 Pulse Ox 92 01/10/22 08:17 01/09/22 01/10/22 01/10/22 22:59 06:59 14:59 Intake Total 50 / 600 50 / 600 Output Total 0 / 0 Balance 50 / 600 50 / 600 Physical Exam Narrative: : Soft, tender on the PEG tube, PEG tube in the left upper quadrant Data : 01/09/22 05:50 01/09/22 05:50 Micro: Microbiology 01/06/22 18:20 Urine Culture - Final Urine,Clean Catch Escherichia coli A&P Assessment and plan (1) S/P percutaneous endoscopic gastrostomy (PEG) tube placement: 66-year-old female status post PEG tube placement. The tube feeds were not sta rted yesterday for some reason. Start Glucerna at 10 cc/h and increase by 10 cc/h every 8 hours Status: Acute Attestations Medical Necessity Statement*: As per primary Coding Level of Care Code Acute Conveyor System Operator for Chg Fwd Diagnoses S/P percutaneous endoscopic gastrostomy (PEG) tube placement Z93.1
[2022-01-10 10:46] LABS: Basophils # 0.1 10^3/uL (0.0-0.1); Basophils % 0.6 %; Eosinophils # 0.1 10^3/uL (0.0-0.8); Eosinophils % 0.7 %; Hematocrit 39.3 % (37.0-47.0); Hemoglobin 12.5 g/dL (11.5-15.3); Lymphocytes # 0.4 10^3/uL (0.8-4.8); Lymphocytes % 5.1 %; Mean Corpuscular HGB Conc 31.8 g/dL (30.0-36.0); Mean Corpuscular Hemoglobin 31.9 pg (28.0-34.0); Mean Corpuscular Volume 100.3 fl (81-99); Monocytes # 0.2 10^3/uL (0.2-0.9); Monocytes % 2.3 %; Neutrophils # 7.87 10^3/uL (1.8-7.7); Neutrophils % 90.5 %; Nucleated Red Blood Cells % 0 %; Platelet Count 93 10^3/cmm (130-400); Red Blood Count 3.92 10^6/uL (4.1-5.3); Red Cell Distribution Width 13.2 % (12.1-15.1); White Blood Count 8.7 10^3/uL (4.0-10.0)
[2022-01-10 11:18] LABS: Slide Review Slide Review Perform
[2022-01-10] MEDS: venlafaxine 75 mg Tablet 37.5 MG PO (11:32)
[2022-01-10] MEDS: heparin 5,000 unit/mL INJ 1 mL 5000 UNIT SUBCUT ×2 (11:32→20:32)
[2022-01-10] MEDS: folic acid 1 mg Tablet PO ×2 (11:33→17:43)
[2022-01-10] MEDS: oxybutynin 5 mg Tablet PO ×2 (11:33→17:43)
[2022-01-10 12:06] LABS: Glucose Point of Care 144 mg/dL (70-110)
--- NOTE | 2022-01-10 13:27 | XRR_ITS ---
PROCEDURE INFORMATION: Exam: XR Abdomen Exam date and time: 01/10/2022 1:27 PM Age: 66 years old Clinical indication: Abdominal tenderness and nausea; Prior surgery; Surgery date: 6+ months; Surgery type: Gb, peg tube; Patient HX: ? Sbo TECHNIQUE: Imaging protocol: XR of the abdomen. Views: Frontal supine view of the abdomen. 1 View. COMPARISON: CR (CHEST, ) 01/08/2022 4:27 PM FINDINGS: Tubes, catheters and devices: There is a gastrostomy tube present. Gastrointestinal tract: No dilated gas-filled loops of bowel. Normal amount of stool in the colon. Bones/joints: Slight curvature of the lumbar spine convex to the left associated with multilevel disc degeneration. XR/XR KUB portable [id number] IMPRESSION: No sign of bowel obstruction.
--- NOTE | 2022-01-10 14:00 | P.PN_ITS ---
Subjective Subjective: No complaints overnight. Seen with daughter at bedside. Underwent PEG tube placement yesterday. On 4 L saturating 95%. Has remained hemodynamically stable and afebrile. Started on tube feeds at 10 cc/h today. 30 minutes before starting patient had episode of nausea and vomiting along with multiple dry heaves after which tube feeds were withheld. Patient was started on Protonix, Carafate, given Reglan and KUB x-ray was requested. Vitals/I&O/Wt Last Vital Signs Temp 98.8 F 01/10/22 12:00 Pulse 78 01/10/22 12:00 Resp 16 01/10/22 12:00 BP 107/77 01/10/22 12:00 Pulse Ox 95 01/10/22 12:00 01/09/22 01/10/22 01/10/22 22:59 06:59 14:59 Intake Total 50 / 550 50 / 600 50 / 50 Output Total 0 / 0 Balance 50 / 550 50 / 600 50 / 50 Physical Exam Narrative: GEN: Awake, opens eyes to calling name, tracks my movement with eyes, however does not follow any commands. She is nonverbal. Has a comfort stuffed toy with her at bedside. CVS: S1S2 N RS: CTA B/L anteriorly Abd: Soft, nt/nd , bs+ COMMERCIAL PEST CONTROL TECHNICIAN: Unable to assess at this time as patient not following commands. Data : 01/10/22 10:10 01/09/22 05:50 Micro: Microbiology 01/06/22 18:20 Urine Culture - Final Urine,Clean Catch Escherichia coli A&P Assessment and plan (1) Hypoxia: Status: Acute (2) Aspiration pneumonitis: Status: Acute (3) S/P percutaneous endoscopic gastrostomy (PEG) tube placement: Status: Acute (4) Altered mental status: Status: Acute (5) Hypernatremia: Status: Acute (6) UTI (urinary tract infection): Status: Acute (7) Acute kidney injury: Status: Acute (8) Diabetes: Status: Acute (9) Hydrocephalus: Status: Acute (10) Transaminitis: Status: Acute (11) Protein-energy malnutrition: Status: Acute (12) Gastritis: Status: Acute (13) Adult failure to thrive: Status: Acute (14) Dehydration: Status: Acute Plan Given lab holiday today. 66-year-old lady with known advanced dementia brought to the hospital with family with whom she lives for complaints of increasing generalized weakness, fatigue, failure to thrive worsening over the past week particularly. Found to have hypernatremia, acute kidney injury and transaminitis along with hydrocephalus on CT head. Hypoxia: Secondary to possible aspiration pneumonia. Resolving. PE ruled out. proBNP normal. COVID-19 PCR negative, MRSA negative, pro-Jorden normal Continue with Zosyn. Continue to wean down oxygen keeping saturation over 88%. Chest vest. Post PEG tube placement. Appreciate surgical recommendation and assistance. Altered mental status: Most likely a combination of hypernatremia and metabolic encephalopathy secondary to UTI. B12, ammonia, homocystine, RPR, hepatitis panel appreciated normal. Low folate levels are started on folic acid 1 mg twice daily. Zosyn should cover for UTI as well. Urine culture growing E. coli resistant to levofloxacin. Day 4/5 of antibiotic directed treatment Blood cultures sent and so far negative. Post PEG tube placement: Start tube feeds with Glucerna 10 cc/h with goal of 30 cc/h. Increase 10 cc every 4 hours. Free water flushes 200 every 6 hour. X-ray KUB. Depending on that we will on bowel regimen versus an enema. Protonix 40 mg twice daily, Carafate. Gastritis: Seen on EGD during PEG tube placement. Protonix and Carafate as above. Hypernatremia: Resolved. Most likely secondary to poor oral intake and dehydration. Continue with D5W at 75 cc/h. We will stop fluids once able to tolerate tube feeds. Recheck BMP daily. Transaminitis: Resolving. Liver ultrasound appreciated for mild cirrhosis with possible cholecystitis. Hepatitis panel negative, HIV negative. Acute kidney injury: Resolved. BUN still elevated and trending down. Again secondary dehydration. Medical reconciliation done for nephrotoxic drugs. Type 2 diabetes mellitus: A1c 7.5. Insulin sliding scale every 4 hourly as patient is also on D5W. Hydrocephalus: Chronic. Patient does not follow with any neurologist. Will advised to follow-up with neurology as an outpatient for possible PENSIONS RETIREMENT PLAN SPECIALIST shunt placement for improvement in lifestyle if possible. Goals of care discussion: Had a detailed discussion about treatment plan and goals of care with patient's daughter. As per the daughter patient delivery to go use to walk with a walker, feed herself and take care of her basic ADLs but for last 1 week she has been going downhill. We discussed that patient's are most likely secondary to worsening mentation from possible metabolic encephalopathy from UTI and hypernatremia. Based discussed that her hyp onatremia is resolving though she is still on antibiotics for UTI and it might take her at least a week to revert back to her baseline. We also discussed regarding her baseline diet she has hydrocephalus for which she should follow-up with neurologist and possible have PENSIONS RETIREMENT PLAN SPECIALIST shunt placement which can or might improve her baseline gait, mobility, functionality and mentation. Daughter verbalized understanding and would like to follow-up with neurologist as an outpatient. Tube feed as above. Heparin for DVT prophylaxis. Protonix for PUD prophylaxis. Attestations Medical Necessity Statement*: Requires further hospitalization for management of initiation of tube feeds post PEG tube placement for aspiration pneumonitis secondary to altered mental status and chronic dementia from hydrocephalus, dehydration, hypernatremia and UTI Time Spent in Patient Care: Greater than 35 minutes Coding Level of Care Code Acute Learning Support Teacher for [facility] Fwd Diagnoses Hypoxia R09.02 Aspiration pneumonitis J69.0 Altered mental status R41.82 Hypernatremia E87.0 UTI (urinary tract infection) N39.0 Acute kidney injury N17.9 Dehydration E86.0 Adult failure to thrive R62.7 Diabetes E11.9 Hydrocephalus G91.9 Transaminitis R74.01 Protein-energy malnutrition E46 S/P percutaneous endoscopic gastrostomy (PEG) tube placement Z93.1 Gastritis K29.70
[2022-01-10] MEDS: dextrose 5% 1,000 ML 50 ML IV (14:23)
[2022-01-10] MEDS: metoclopramide 5 mg/mL SDV 2 mL 10 MG IVP (14:30)
[2022-01-10] MEDS: sucralfate 1 gm/10 mL Oral Liq UDC PO ×2 (14:31→20:33)
[2022-01-10 17:22] LABS: Glucose Point of Care 231 mg/dL (70-110)
[2022-01-10] MEDS: pantoprazole 40 mg SDV IVP (17:43)
[2022-01-10 19:47] LABS: Alanine Aminotransferase 81 U/L (0-33); Albumin Level 2.5 g/dL (3.5-5.2); Alkaline Phosphatase 243 IU/L (35-105); Anion Gap 16.6 (5-19); Aspartate Amino Transferase 26 U/L (0-32); Blood Urea Nitrogen 32 mg/dL (8-23); Carbon Dioxide 22 mmol/L (22-29); Chloride 108 mmol/L (98-107); Globulin 3.2 g/dL (1.3-4.6); Glomerular Filtration Rate 83.5 mL/min (90-130); Glucose 282 mg/dL (65-115); Osmolality Calculated 313 mOsm/kg (285-295); Potassium 3.6 mmol/L (3.5-5.1); Sodium 143 mmol/L (136-145); Total Bilirubin 0.3 mg/dL (0.15-1.2); Total Protein 5.7 g/dL (6.6-8.7)
[2022-01-10 20:46] LABS: Glucose Point of Care 271 mg/dL (70-110)
[2022-01-10] MEDS: insulin lispro 100 unit/1 mL SUBCUT (21:00)
[2022-01-10 23:44] LABS: Glucose Point of Care 147 mg/dL (70-110)
[2022-01-10] MEDS: acetaminophen 650 mg Supp PR (23:55)
[2022-01-11] VITALS (8 sets, daily range): BP systolic 107–148; BP diastolic 62–76; PULSE 80–113; RESP 16–18; TEMP 36.4–38.4; O2SAT 92–96
[2022-01-11 03:59] LABS: Glucose Point of Care 172 mg/dL (70-110)
[2022-01-11] MEDS: insulin lispro 100 unit/1 mL SUBCUT ×3 (04:09→20:59)
[2022-01-11] MEDS: ondansetron 2 mg/ML SDV 2 mL 4 MG IVP (05:57)
[2022-01-11 06:18] LABS: Basophils % 0.4 %; Eosinophils % 0.4 %; Hematocrit 36.2 % (37.0-47.0); Hemoglobin 11.7 g/dL (11.5-15.3); Lymphocytes # 0.3 10^3/uL (0.8-4.8); Lymphocytes % 3.5 %; Mean Corpuscular HGB Conc 32.3 g/dL (30.0-36.0); Mean Corpuscular Hemoglobin 31.1 pg (28.0-34.0); Mean Corpuscular Volume 96.3 fl (81-99); Monocytes # 0.2 10^3/uL (0.2-0.9); Monocytes % 2.2 %; Neutrophils # 8.22 10^3/uL (1.8-7.7); Neutrophils % 92.3 %; Nucleated Red Blood Cells % 0 %; Platelet Count 124 10^3/cmm (130-400); Red Blood Count 3.76 10^6/uL (4.1-5.3); Red Cell Distribution Width 13.2 % (12.1-15.1); White Blood Count 8.9 10^3/uL (4.0-10.0)
[2022-01-11 06:20] LABS: Mean Platelet Volume 13.7 fL (7.4-10.4)
[2022-01-11 06:30] LABS: Alanine Aminotransferase 74 U/L (0-33); Albumin Level 2.5 g/dL (3.5-5.2); Alkaline Phosphatase 304 IU/L (35-105); Anion Gap 11.2 (5-19); Aspartate Amino Transferase 25 U/L (0-32); Blood Urea Nitrogen 30 mg/dL (8-23); Calcium 8.4 mg/dL (8.5-10.5); Carbon Dioxide 25 mmol/L (22-29); Chloride 111 mmol/L (98-107); Glomerular Filtration Rate 55.3 mL/min (90-130); Glucose 233 mg/dL (65-115); Osmolality Calculated 312 mOsm/kg (285-295); Potassium 3.2 mmol/L (3.5-5.1); Sodium 144 mmol/L (136-145); Total Bilirubin 0.3 mg/dL (0.15-1.2); Total Protein 5.5 g/dL (6.6-8.7)
[2022-01-11] MEDS: piperacillin-tazobactam 3.375 GM in sodium chloride 0.9% (plus) 50 ML IV ×3 (06:31→22:11)
--- NOTE | 2022-01-11 09:50 | PC.SOCIAL ---
IMM update pg 2 of IMM updated and reviewed w/ patients daughter. Copy provided and copy in chart updated.
[2022-01-11 11:01] LABS: Glucose Point of Care 261 mg/dL (70-110)
[2022-01-11] MEDS: sucralfate 1 gm/10 mL Oral Liq UDC PO ×2 (13:01→20:49)
[2022-01-11] MEDS: venlafaxine 75 mg Tablet 37.5 MG PO (13:01)
[2022-01-11] MEDS: folic acid 1 mg Tablet PO ×2 (13:01→17:56)
[2022-01-11] MEDS: pantoprazole 40 mg SDV IVP ×2 (13:01→17:56)
[2022-01-11] MEDS: oxybutynin 5 mg Tablet PO ×2 (13:01→17:56)
[2022-01-11] MEDS: heparin 5,000 unit/mL INJ 1 mL 5000 UNIT SUBCUT ×2 (13:02→20:49)
--- NOTE | 2022-01-11 14:25 | PM.PN ---
Subjective Subjective: Overnight patient has remained on tube feeds. She was at 20 cc/h and when increased to 30 cc had 1 episode of vomiting so was put back to 20 cc early in the morning. T-max last 24 hours 101.2 Fahrenheit. Afebrile today morning. A lot more awake and alert. Not following commands. Family at bedside. Tube feeds still running at 20 cc/h. During the day found to have residual of 50 cc so tube feeds were not increased. Vitals/I&O/Wt Last Vital Signs Temp 98.1 F 01/11/22 11:58 Pulse 80 01/11/22 11:58 Resp 18 01/11/22 11:58 BP 110/64 01/11/22 11:58 Pulse Ox 96 01/11/22 11:58 01/10/22 01/11/22 01/11/22 21:59 06:59 14:59 Intake Total 50 / 50 Balance 50 / 50 Physical Exam Narrative: GEN: Awake, no acute distress, nonverbal, tracking in the room. Back to baseline as per family. CVS: S1S2 N RS: CTA B/L anteriorly Abd: Soft, nt/nd , bs+, PEG tube in place ONSITE CASE MANAGER: Unable to assess at this time as patient not following commands. Data : 01/11/22 05:45 01/11/22 05:45 Micro: Microbiology 01/11/22 05:45 Blood Culture - Preliminary Blood SPECIMEN COLLECTED 01/11/22 05:45 Blood Culture - Preliminary Blood SPECIMEN COLLECTED 01/09/22 16:45 MRSA Culture - Final Nose A&P Assessment and plan (1) Hypoxia: Status: Acute (2) Aspiration pneumonitis: Status: Acute (3) S/P percutaneous endoscopic gastrostomy (PEG) tube placement: Status: Acute (4) Altered mental status: Status: Acute (5) Hypernatremia: Status: Acute (6) UTI (urinary tract infection): Status: Acute (7) Acute kidney injury: Status: Acute (8) Diabetes: Status: Acute (9) Hydrocephalus: Status: Acute (10) Transaminitis: Status: Acute (11) Protein-energy malnutrition: Status: Acute (12) Gastritis: Status: Acute (13) Adult failure to thrive: Status: Acute (14) Dehydration: Status: Acute Plan 66-year-old lady with known advanced dementia brought to the hospital with family with whom she lives for complaints of increasing generalized weakness, fatigue, failure to thrive worsening over the past week particularly. Found to have hypernatremia, acute kidney injury and transaminitis along with hydrocephalus on CT head. Hypoxia: Secondary to possible aspiration pneumonia. Resolving. PE ruled out. proBNP normal. COVID-19 PCR negative, MRSA negative, pro-Jorden normal Continue with Zosyn. Continue to wean down oxygen keeping saturation over 88%. Chest vest. Post PEG tube placement. Appreciate surgical recommendation and assistance. Altered mental status: Most likely a combination of hypernatremia and metabolic encephalopathy secondary to UTI. B12, ammonia, homocystine, RPR, hepatitis panel appreciated normal. Low folate levels are started on folic acid 1 mg twice daily. Zosyn should cover for UTI as well. Urine culture growing E. coli resistant to levofloxacin. Blood cultures sent and so far negative. Post PEG tube placement: Start tube feeds with Glucerna 10 cc/h with goal of 30 cc/h. Increase 10 cc every 4 hours. Free water flushes 200 every 6 hour. Not tolerating PEG tube feeds for now. Having occasional episode of vomiting. Showing high residuals. For now continue 20 cc/h. Enema. KUB done shows no obstruction. Protonix 40 mg twice daily, Carafate. Gastritis: Seen on EGD during PEG tube placement. Protonix and Carafate as above. Hypernatremia: Resolved. Most likely secondary to poor oral intake and dehydration. Continue with D5W at 50 cc/h. We will stop fluids once able to tolerate tube feeds. Recheck BMP daily. Transaminitis: Resolving. Liver ultrasound appreciated for mild cirrhosis with possible cholecystitis. Hepatitis panel negative, HIV negative. Acute kidney injury: Resolved. BUN still elevated and trending down. Again secondary dehydration. Medical reconciliation done for nephrotoxic drugs. Type 2 diabetes mellitus: A1c 7.5. Insulin sliding scale every 4 hourly as patient is also on D5W. Hydrocephalus: Chronic. Patient does not follow with any neurologist. Will advised to follow-up with neurology as an outpatient for possible MOBILE HOME TECHNICIAN shunt placement for improvement in lifestyle if possible. Goals of care discussion: Had a detailed discussion about treatment plan and goals of care with patient's daughter. As per the daughter patient delivery to go use to walk with a walker, feed herself and take care of her basic ADLs but for last 1 week she has been going downhill. We discussed that patient's are most likely secondary to worsening mentation from possible metabolic encephalopathy from UTI and hypernatremia. Based discussed that her hyponatremia is resolving though she is still on antibiotics for UTI and it might take her at least a week to revert back to her baseline. We also discussed regarding her baseline diet she has hydrocephalus for which she should follow-up with neurologist and possible have MOBILE HOME TECHNICIAN shunt placement which can or might improve her baseline gait, mobility, functionality and mentation. Daughter verbalized understanding and would like to follow-up with neurologist as an outpatient. Tube feed as above. Heparin for DVT prophylaxis. Protonix for PUD prophylaxis. Plan for day: Continue with Zosyn. Chest x-ray. Milk of molasses enema. Increase tube feeds gradually while monitoring for residuals and aspiration to reach goal. Plan discussed in detail with family at bedside. Attestations Medical Necessity Statement*: Requires further hospitalization while tube feeds are increased to reach goal while patient is monitored if tube feeds are tolerated in setting of advanced dementia, hydrocephalus, aspiration pneumonitis Time Spent in Patient Care: Greater than 35 minutes Coding Level of Care Code Acute Mold Operator for [facility] Fwd Diagnoses Hypoxia R09.02 Aspiration pneumonitis J69.0 S/P percutaneous endoscopic gastrostomy (PEG) tube placement Z93.1 Altered mental status R41.82 Hypernatremia E87.0 UTI (urinary tract infection) N39.0 Acute kidney injury N17.9 Diabetes E11.9 Hydrocephalus G91.9 Transaminitis R74.01 Protein-energy malnutrition E46 Gastritis K29.70 Adult failure to thrive R62.7 Dehydration E86.0
[2022-01-11] MEDS: dextrose 5% 1,000 ML 50 ML IV (14:27)
--- NOTE | 2022-01-11 14:31 | XRR_ITS ---
PROCEDURE INFORMATION: Exam: XR Chest Exam date and time: 01/11/2022 2:31 PM Age: 66 years old Clinical indication: Hyperventilation; Additional info: Hypoxia, asp pna TECHNIQUE: Imaging protocol: XR of the chest. Views: 1 view. COMPARISON: CR (CHEST, ) 01/08/2022 4:27 PM FINDINGS: Lungs: Mild airspace disease demonstrated in the left mid to lower lung. Minimal airspace disease seen in the inferomedial aspect of the right lower lobe. Pleural spaces: No pleural effusion or pneumothorax noted. Heart/Mediastinum: No cardiomegaly. Vasculature: Mild atherosclerosis of the thoracic aorta. Bones/joints: Degenerative spine changes are noted. XR/XR chest 1V portable [id number] IMPRESSION: 1. Mild airspace disease demonstrated in the left mid to lower lung. This has improved/decreased when compared to 01/08/2022. 2. Minimal airspace disease seen in the inferomedial aspect of the right lower lobe. Right lung demonstrates improved aeration when compared to 01/08/2022. 3. There are no new infiltrates identified.
[2022-01-11 16:37] LABS: Glucose Point of Care 324 mg/dL (70-110)
[2022-01-11] MEDS: metoclopramide oral liquid 5 mg/5 mL (ml) PO (17:56)
[2022-01-11] MEDS: potassium chloride oral liq 20 mEq/15 mL UDC 40 MEQ PO (17:56)
--- NOTE | 2022-01-11 19:58 | PM.PN ---
Subjective Subjective: Patient had some vomiting last night after tube feeds were started yesterday. No BM. She is tolerating tube feeds at 20 cc/h Medications: Reviewed: Yes Vitals/I&O/Wt Last Vital Signs Temp 97.6 F 01/11/22 15:59 Pulse 82 01/11/22 15:59 Resp 18 01/11/22 15:59 BP 107/66 01/11/22 15:59 Pulse Ox 92 01/11/22 15:59 01/11/22 01/11/22 01/11/22 06:59 14:59 22:59 Intake Total 1050 / 1100 50 / 1100 Balance 1050 / 1100 50 / 1100 Physical Exam Narrative: Abdomen: Soft, nondistended, PEG tube in the left upper quadrant. There is area of skin breakdown from dressings Data : 01/11/22 05:45 01/11/22 05:45 Micro: Microbiology 01/11/22 05:45 Blood Culture - Preliminary Blood SPECIMEN COLLECTED 01/11/22 05:45 Blood Culture - Preliminary Blood SPECIMEN COLLECTED 01/09/22 16:45 MRSA Culture - Final Nose A&P Assessment and plan (1) S/P percutaneous endoscopic gastrostomy (PEG) tube placement: Patient is tolerating tube feeds at 20cc/h, increase rate tomorrow if she does not have any further nausea or vomiting. I had started her on Protonix and Carafate yesterday since she was noted to have significant gastritis during the PEG placement. Patient did not have a response with enema, start liquid Colace 100 mg p.o. twice daily through PEG tube Status: Acute Attestations Medical Necessity Statement*: As per primary Coding Level of Care Code Acute Supervisor Shaving And Splitting for [facility] Fwd Diagnoses S/P percutaneous endoscopic gastrostomy (PEG) tube placement Z93.1
[2022-01-11 20:48] LABS: Glucose Point of Care 295 mg/dL (70-110)
[2022-01-12] VITALS (8 sets, daily range): BP systolic 112–138; BP diastolic 64–81; PULSE 60–79; RESP 16–23; TEMP 36.4–37.1; O2SAT 90–98
[2022-01-12] MEDS: ondansetron 2 mg/ML SDV 2 mL 4 MG IVP (02:15)
[2022-01-12 03:04] LABS: Basophils % 0.4 %; Eosinophils # 0.1 10^3/uL (0.0-0.8); Eosinophils % 1.5 %; Hematocrit 33.8 % (37.0-47.0); Hemoglobin 10.9 g/dL (11.5-15.3); Lymphocytes # 0.5 10^3/uL (0.8-4.8); Lymphocytes % 9.5 %; Mean Corpuscular HGB Conc 32.2 g/dL (30.0-36.0); Mean Corpuscular Volume 99.1 fl (81-99); Mean Platelet Volume 12.5 fL (7.4-10.4); Monocytes # 0.3 10^3/uL (0.2-0.9); Monocytes % 4.8 %; Neutrophils # 4.34 10^3/uL (1.8-7.7); Neutrophils % 80.8 %; Nucleated Red Blood Cells % 0 %; Platelet Count 119 10^3/cmm (130-400); Red Blood Count 3.41 10^6/uL (4.1-5.3); Red Cell Distribution Width 13.5 % (12.1-15.1); White Blood Count 5.4 10^3/uL (4.0-10.0)
[2022-01-12 03:23] LABS: Glucose Point of Care 222 mg/dL (70-110)
[2022-01-12] MEDS: insulin lispro 100 unit/1 mL SUBCUT ×3 (03:26→21:05)
[2022-01-12 03:27] LABS: Alanine Aminotransferase 52 U/L (0-33); Albumin Level 2.1 g/dL (3.5-5.2); Alkaline Phosphatase 230 IU/L (35-105); Aspartate Amino Transferase 17 U/L (0-32); Blood Urea Nitrogen 20 mg/dL (8-23); Calcium 8.8 mg/dL (8.5-10.5); Carbon Dioxide 25 mmol/L (22-29); Chloride 109 mmol/L (98-107); Globulin 3.4 g/dL (1.3-4.6); Glomerular Filtration Rate 83.5 mL/min (90-130); Glucose 212 mg/dL (65-115); Osmolality Calculated 303 mOsm/kg (285-295); Sodium 142 mmol/L (136-145); Total Bilirubin 0.3 mg/dL (0.15-1.2); Total Protein 5.5 g/dL (6.6-8.7)
[2022-01-12] MEDS: piperacillin-tazobactam 3.375 GM in sodium chloride 0.9% (plus) 50 ML IV ×3 (06:14→22:54)
[2022-01-12 06:37] LABS: Glucose Point of Care 173 mg/dL (70-110)
[2022-01-12] MEDS: docusate sodium 10 mg/mL (5ml) Liq 100 MG PEG-TUBE (08:27)
[2022-01-12] MEDS: pantoprazole 40 mg SDV IVP ×2 (08:28→18:16)
[2022-01-12] MEDS: oxybutynin 5 mg Tablet PO ×2 (08:28→18:16)
[2022-01-12] MEDS: heparin 5,000 unit/mL INJ 1 mL 5000 UNIT SUBCUT ×2 (08:28→18:17)
[2022-01-12] MEDS: sucralfate 1 gm/10 mL Oral Liq UDC PO ×3 (08:28→20:51)
[2022-01-12] MEDS: metoclopramide oral liquid 5 mg/5 mL (ml) PO ×2 (08:28→18:18)
[2022-01-12] MEDS: folic acid 1 mg Tablet PO ×2 (08:28→18:17)
[2022-01-12] MEDS: venlafaxine 75 mg Tablet 37.5 MG PO (08:28)
[2022-01-12] MEDS: dextrose 5% 1,000 ML 50 ML IV (08:45)
[2022-01-12 11:43] LABS: Glucose Point of Care 192 mg/dL (70-110)
--- NOTE | 2022-01-12 13:01 | P.PN_ITS ---
Subjective Subjective: No nausea or vomiting overnight, tolerating tube feeds at 20 cc/h, started Colace yesterday Medications: Reviewed: Yes Vitals/I&O/Wt Last Vital Signs Temp 97.6 F 01/12/22 11:39 Pulse 71 01/12/22 11:39 Resp 16 01/12/22 11:39 BP 112/64 01/12/22 11:39 Pulse Ox 91 01/12/22 11:39 01/11/22 01/12/22 01/12/22 22:59 06:59 14:59 Intake Total 50 / 1150 50 / 1150 965 / 965 Balance 50 / 1150 50 / 1150 965 / 965 Physical Exam Narrative: Abdomen: Soft, nontender, PEG tube in the left upper quadrant Data : 01/12/22 02:27 01/12/22 02:27 Micro: Microbiology 01/11/22 05:45 Blood Culture - Preliminary Blood NEGATIVE TO DATE 01/11/22 05:45 Blood Culture - Preliminary Blood NEGATIVE TO DATE A&P Assessment and plan (1) S/P percutaneous endoscopic gastrostomy (PEG) tube placement: Increase tube feeds to 30 cc/h Can consider bolus feeds after 7 days Continue Colace 100 mg p.o. twice daily through PEG tube Continue Protonix and Carafate since patient had significant gastritis on EGD which could have contributed to her nausea and vomiting Status: Acute Attestations Medical Necessity Statement*: As per primary Coding Level of Care Code Acute Soil Sampler for Chg Fwd Diagnoses S/P percutaneous endoscopic gastrostomy (PEG) tube placement Z93.1
--- NOTE | 2022-01-12 13:26 | PC.NUTR ---
Consult for TF received. When medically appropriate, recommend consideration of Glucerna 1.2 beginning at 15 mls/hr, increasing 10 mls/hr Q8H as tolerated to a goal rate of 35 mls/hr with 100 ml flushes Q4H. Details in RD assessment.
[2022-01-12 16:34] LABS: Glucose Point of Care 237 mg/dL (70-110)
--- NOTE | 2022-01-12 20:24 | P.PN_ITS ---
Subjective Subjective: Poorly responsive. Not accepted by NH todayNo significant change Vitals/I&O/Wt Last Vital Signs Temp 98.5 F 01/12/22 19:29 Pulse 78 01/12/22 19:39 Resp 17 01/12/22 19:39 BP 115/64 01/12/22 19:29 Pulse Ox 94 01/12/22 19:39 01/12/22 01/12/22 01/12/22 06:59 14:59 22:59 Intake Total 50 / 1150 965 / 965 Balance 50 / 1150 965 / 965 Physical Exam Narrative: GEN: Awake, no acu te distress, nonve rbal, tracking in the room.? Back to baseline as per kristen becerril. CVS: S1S2 N RS: CTA B/L anter iorly Abd: Soft, n t/nd , bs+, PEG tu be in place SINGEING TORCH OPERATOR: U nable to assess at this time as karie ent not following commands. Data : 01/12/22 02:27 01/12/22 02:27 Micro: Microbiology 01/11/22 05:45 Blood Culture - Preliminary Blood NEGATIVE TO DATE 01/11/22 05:45 Blood Culture - Preliminary Blood NEGATIVE TO DATE A&P Assessment and plan (1) Aspiration pneumonitis: Status: Acute (2) Gastritis: Status: Acute (3) S/P percutaneous endoscopic gastrostomy (PEG) tube placement: Status: Acute (4) Protein-energy malnutrition: Status: Acute (5) Hypoxia: Status: Acute (6) Transaminitis: Status: Acute (7) Acute kidney injury: Status: Acute (8) Hypertension: Status: Acute (9) Altered mental status: Status: Acute (10) UTI (urinary tract infection): Status: Acute (11) Hydrocephalus: Status: Acute (12) Diabetes: Status: Acute (13) Adult failure to thrive: Status: Acute (14) Weakness: Status: Acute (15) Dehydration: Status: Acute (16) Hypernatremia: Status: Acute (17) HLD (hyperlipidemia): Status: Acute Plan 66-year-old lady with known advanced dementia brought to the hospital with family with whom she lives for complaints of increasing generalized weakness, fatigue, failure to thrive worsening over the past week particularly.? Found to have hypernatremia, acute kidney injury and transaminitis along with hydrocephalus on CT head. Hypoxia: Secondary to possible aspiration pneumonia.? Resolving. PE ruled out.? proBNP normal.? COVID-19 PCR negative, MRSA negative, pro-Jorden normal Continue with Zosyn. Continue to wean down oxygen keeping saturation over 88%. Chest vest. Post PEG tube placement.? Appreciate surgical recommendation and assistance. Altered mental status: Most likely a combination of hypernatremia and metabolic encephalopathy secondary to UTI. B12, ammonia, homocystine, RPR, hepatitis panel appreciated normal. Low folate levels are started on folic acid 1 mg twice daily.? Zosyn should cover for UTI as well.? Urine culture growing E. coli resistant to levofloxacin.? Blood cultures sent and so far negative. Post PEG tube placement: Start tube feeds with Glucerna 10 cc/h with goal of 30 cc/h.? Increase 10 cc every 4 hours.? Free water flushes 200 every 6 hour. Not tolerating PEG tube feeds for now.? Having occasional episode of vomiting.? Showing high residuals.? For now continue 20 cc/h. Enema.? KUB done shows no obstruction. Protonix 40 mg twice daily, Carafate. Gastritis: Seen on EGD during PEG tube placement. Protonix and Carafate as above. Hypernatremia: Resolved. Most likely secondary to poor oral intake and dehydration. Continue with D5W at 50 cc/h.? We will stop fluids once able to tolerate tube feeds. Recheck BMP daily. Transaminitis: Resolving. Liver ultrasound appreciated for mild cirrhosis with possible cholecystitis. Hepatitis panel negative, HIV negative.? Acute kidney injury: Resolved.? BUN still elevated and trending down. Again secondary dehydration. Medical reconciliation done for nephrotoxic drugs. Type 2 diabetes mellitus: A1c 7.5. Insulin sliding scale every 4 hourly as patient is also on D5W. Hydrocephalus: Chronic. Patient does not follow with any neurologist.? Will advised to follow-up with neurology as an outpatient for possible SPORTS MANAGEMENT INTERNSHIP shunt placement for improvement in lifestyle if possible. Goals of care discussion: Had a detailed discussion about treatment plan and goals of care with patient's daughter.? As per the daughter patient delivery to go use to walk with a walker, feed herself and take care of her basic ADLs but for last 1 week she has been going downhill.? We discussed that patient's are most likely secondary to worsening mentation from possible metabolic encephalo fanta from UTI and hypernatremia.? Based discussed that her hyponatremia is resolving though she is still on antibiotics for UTI and it might take her at least a week to revert back to her baseline.? We also discussed regarding her baseline diet she has hydrocephalus for which she should follow-up with neurologist and possible have SPORTS MANAGEMENT INTERNSHIP shunt placement which can or might improve her baseline gait, mobility, functionality and mentation.? Daughter verbalized understanding and would like to follow-up with neurologist as an outpatient. Attestations 2 Medical Necessity Statement*: Requires further hospitalization while tube feeds are increased to reach goal while patient is monitored if tube feeds are tolerated in setting of advanced dementia, hydrocephalus, aspiration pneumonitis Time Spent in Patient Care: 35 min Coding Level of Care Code Acute Animal Care Supervisor for g Fwd Diagnoses Aspiration pneumonitis J69.0 Gastritis K29.70 S/P percutaneous endoscopic gastrostomy (PEG) tube placement Z93.1 Protein-energy malnutrition E46 Hypoxia R09.02 Transaminitis R74.01 Acute kidney injury N17.9 Hypertension I10 Altered mental status R41.82 UTI (urinary tract infection) N39.0 Hydrocephalus G91.9 Diabetes E11.9 Adult failure to thrive R62.7 Weakness R53.1 Dehydration E86.0 Hypernatremia E87.0 HLD (hyperlipidemia) E78.5
[2022-01-12 20:42] LABS: Glucose Point of Care 267 mg/dL (70-110)
[2022-01-13 03:14] VITALS: BP 124/68; PULSE 67; RESP 20; TEMP 37; O2SAT 92
[2022-01-13 03:20] LABS: Glucose Point of Care 167 mg/dL (70-110)
[2022-01-13] MEDS: insulin lispro 100 unit/1 mL SUBCUT (03:36)
[2022-01-13] MEDS: piperacillin-tazobactam 3.375 GM in sodium chloride 0.9% (plus) 50 ML IV (06:15)
[2022-01-13 07:18] VITALS: BP 113/67; PULSE 67; RESP 18; TEMP 37; O2SAT 92
[2022-01-13] MEDS: pantoprazole 40 mg SDV IVP (08:16)
[2022-01-13] MEDS: venlafaxine 75 mg Tablet 37.5 MG PO (08:16)
[2022-01-13] MEDS: oxybutynin 5 mg Tablet PO ×2 (08:16→18:01)
[2022-01-13] MEDS: docusate sodium 10 mg/mL (5ml) Liq 100 MG PEG-TUBE (08:16)
[2022-01-13] MEDS: folic acid 1 mg Tablet PO ×2 (08:16→18:01)
[2022-01-13] MEDS: heparin 5,000 unit/mL INJ 1 mL 5000 UNIT SUBCUT (08:16)
[2022-01-13] MEDS: sucralfate 1 gm/10 mL Oral Liq UDC PO ×2 (08:16→15:56)
[2022-01-13 08:34] VITALS: PULSE 75; RESP 16; O2SAT 94
[2022-01-13] MEDS: metoclopramide oral liquid 5 mg/5 mL (ml) PO ×2 (10:30→18:01)
[2022-01-13 11:11] VITALS: BP 116/74; PULSE 68; RESP 18; TEMP 36.7; O2SAT 90
[2022-01-13 11:27] LABS: Glucose Point of Care 200 mg/dL (70-110)
--- NOTE | 2022-01-13 13:00 | PM.DCS ---
Discharge Providers Date of Admission: 01/06/22 19:26 Date of Discharge: January 13, 2022 Attending Provider at Admission: Angela Davison MD Attending Provider at Discharge: Evelyn Ahn MD Primary Care Provider: GIOVANNI SILVEIRA MD Diagnoses at Discharge Discharge Diagnosis (1) Aspiration pneumonitis: Status: Acute (2) Gastritis: Status: Acute (3) S/P percutaneous endoscopic gastrostomy (PEG) tube placement: Status: Acute (4) Protein-energy malnutrition: Status: Acute (5) Hypoxia: Status: Acute (6) Transaminitis: Status: Acute (7) Acute kidney injury: Status: Acute (8) Hypertension: Status: Acute (9) Altered mental status: Status: Acute (10) UTI (urinary tract infection): Status: Acute (11) Hydrocephalus: Status: Acute (12) Diabetes: Status: Acute (13) Adult failure to thrive: Status: Acute (14) Weakness: Status: Acute (15) Dehydration: Status: Acute (16) Hypernatremia: Status: Acute (17) HLD (hyperlipidemia): Status: Acute Reason for Visit Reason for Visit: failure to thrive Hospital Course Hospital Course Melba Zee is a 66 year old female with past medical history of dementia, hydrocephalus, nonverbal at baseline.? Brought in today by her family.? Per patient's daughter, at a baseline patient has been nonverbal at least for the past 5 to 6 years, however she is able to ambulate with a walker, follows some simple commands, is able to communicate with gestures with her daughter.? Over this past week she has been increasingly more lethargic and fatigued.? She has not been walking as usual.? Also noted to be needing to eat a pur?ed diet and having a poor p.o. intake.? Normally she keeps a glass glass of water and is able to sip from a straw but has been unable to do that over the past week.? Daughter states that during past episodes of UTI and infection patient's mental status usually deteriorates and she was brought into the emergency room for this concern.? Here she was noted to have multiple electrolyte abnormalities, hypernatremia with sodium at 152, chloride 115, elevated creatinine at 1.5] baseline 0.9).? Patient was started on lisinopril 5 mg daily over the past month for hypertension, however this was discontinued yesterday.? She was also noted to have mild hypercalcemia deranged LFTs and a positive UA. HerUTI was treated w/ Zosyn and hypernatremia corrected w/ hydration. However her mental status did not improve much. CT head revealed extensive hydrocephalus. Pt's family opted for non invasive corrective measures for treating thew hydrocephalus w/ OPTICAL MANAGER shunt. Pt had a PEG placed to maintain her nutrion and high risk for aspiration. Her hypoxia was thought to be due to aspiration PNA. Pt will be d/c home on hospice care. Discharge Data Studies Completed and Pending Completed Studies During Hospitalization Category Date Time Status CT head wo con* [id number] Stat Cat Scan 01/06/22 17:38 Completed CTA chest [CT angio chest PE protcl [id number]] Stat Cat Scan 01/08/22 18:20 Completed CXRP [XR chest 1V portable [id number]] Urgent Exams 01/08/22 16:17 Completed XR KUB portable [id number] Urgent Exams 01/10/22 13:27 Completed XR chest 1V portable [id number] Routine Exams 01/11/22 14:31 Completed XR chest 1V portable [id number] Stat Exams 01/06/22 17:38 Completed CV. echo complete* [id number] Routine Ultrasound 01/09/22 Completed US liver [id number] Routine Ultrasound 01/07/22 08:07 Completed Pending at discharge Category Date Time Status ABG FULL [Arterial Blood Gas Full] Stat Lab 01/08/22 16:53 Results Blood Culture AM LABS Lab 01/11/22 05:45 Results Radiology Impressions Head CT 01/06/22 17:38 IMPRESSION: 1. No acute intracranial abnormality. 2. Right mastoid effusion. 3. Marked cerebral atrophy and chronic microvascular white matter disease. Liver Ultrasound 01/07/22 08:07 IMPRESSION: 1. Hepatic echotexture suggesting changes of cirrhosis. No mass. 2. Gallbladder is not identified. May have been surgically removed or contracted. 3. No bile duct dilatation. Chest CTA 01/08/22 18:20 IMPRESSION: 1. Negative for pulmonary embolism. 2. Multifocal pneumonia process. KUB X-Ray 01/10/22 13:27 IMPRESSION: No sign of bowel obstruction. Chest X-Ray 01/11/22 14:31 IMPRESSION: 1. Mild airspace disease demonstrated in the left mid to lower lung. This has improved/decreased when compared to 01/08/2022. 2. Minimal airspace disease seen in the inferomedial aspect of the right lower lobe. Right lung demonstrates improved aeration when compared to 01/08/2022. 3. There are no new infiltrates identified. Laboratory Results WBC 5.4 10^3/uL (4.0-10.0) 01/12/22 02:27 RBC 3.41 10^6/uL (4.1-5.3) L 01/12/22 02:27 Hgb 10.9 g/dL (11.5-15.3) L 01/12/22 02:27 Hct 33.8 % (37.0-47.0) L 01/12/22 02:27 MCV 99.1 fl (81-99) H 01/12/22 02: MCH 32.0 pg (28.0-34.0) 01/12/22 02: MCHC 32.2 g/dL (30.0-36.0) 01/12/22 02: RDW 13.5 % (12.1-15.1) 01/12/22 02:27 Plt Count 119 10^3/cmm (130-400) L 01/12/22 02:27 MPV 12.5 fL (7.4-10.4) H 01/12/22 02:27 Neut % (Auto) 80.8 % 01/12/22 02: Lymph % (Auto) 9.5 % 01/12/22 02:27 [place] % (Auto) 4.8 % 01/12/22 02:27 Eos % (Auto) 1.5 % 01/12/22 02: Baso % (Auto) 0.4 % 01/12/22 02:27 Neut # (Auto) 4.34 10^3/uL (1.8-7.7) 01/12/22 02:27 Lymph # (Auto) 0.5 10^3/uL (0.8-4.8) L 01/12/22 02:27 [place] # (Auto) 0.3 10^3/uL (0.2-0.9) 01/12/22 02:27 Eos # (Auto) 0.1 10^3/uL (0.0-0.8) 01/12/22 02:27 Baso # (Auto) 0.0 10^3/uL (0.0-0.1) 01/12/22 02:27 Nucleated RBC % (auto) 0 % 01/12/22 02:27 Total Counted 100 (0-100) 01/09/22 05:50 Atypical Lymphs % 0.0 % (0-5) 01/09/22 05:50 Absolute Neutrophils 7.5 10^3/cmm (1.4-6.5) H 01/09/22 05:50 Segmented Neutrophils 44 % 01/09/22 05:50 Abs Segm Neuts (Man) 4.1 10/cmm (1.6-7.1) 01/09/22 05:50 Band Neutrophils 36.0 % 01/09/22 05:50 Abs Band Neuts (Man) 3.4 10^3/cmm (0.0-1.2) H 01/09/22 05:50 Absolute Lymphocytes 1.1 10^3/cmm (1.2-3.4) L 01/09/22 05:50 Lymphocytes (Manual) 12 % 01/09/22 05:50 Monocytes (Manual) 5.0 % 01/09/22 05:50 Absolute Monocytes 0.5 10^3/cmm (0.1-0.6) 01/09/22 05:50 Eosinophils (Manual) 0 % 01/09/22 05:50 Absolute Eosinophils 0.0 10^3/cmm (0.0-0.7) 01/09/22 05:50 Basophils (Manual) 0.0 % 01/09/22 05:50 Absolute Basophils 0.0 10^3/cmm (0.0-0.2) 01/09/22 05:50 Metamyelocytes 3.0 % 01/09/22 05:50 Myelocytes 0.0 % 01/09/22 05:50 Nucleated RBCs # 0.0 /100WBC 01/12/22 02:27 Platelet Estimate Decreased (Normal) L 01/09/22 05:50 Giant Platelets Trace 01/09/22 05:50 D-Dimer 1.66 ug/mIFEU (0-0.59) H 01/08/22 17:20 Specimen Type Arterial 01/08/22 16:53 ABG pH 7.49 (7.35-7.45) H 01/08/22 16:53 ABG pCO2 29.2 mmHg (35-45) L 01/08/22 16:53 ABG pO2 60.4 mmHg (80.0-100.0) L 01/08/22 16:53 ABG HCO3 22.2 mmol/L (22-26) 01/08/22 16:53 ABG O2 Saturation 93.4 01/08/22 16:53 ABG Base Excess 0.0 mmol/L (-2.0-2.0) 01/08/22 16:53 Adeel Test Pos 01/08/22 16:53 A-a O2 Gradient 6.8 mmHg (5-10) 01/08/22 16:53 Hematocrit 45.2 % (37-47) 01/08/22 16:53 Hgb O2 Saturation 91.8 % (95-100) L 01/08/22 16:53 Carboxyhemoglobin 0.7 %THgb (0.4-20.1) 01/08/22 16:53 Methemoglobin 1.0 % (0.4-1.5) 01/08/22 16:53 Total Hemoglobin 14.8 g/dL (12-16) 01/08/22 16:53 Sodium 142.0 mmol/L (131-143) 01/08/22 16:53 Potassium 3.8 mmol/L (3.5-5.0) 01/08/22 16:53 Glucose 324.0 mg/dL (70-115) H 01/08/22 16:53 Ionized Calcium 1.2 mmol/L (1.1-1.4) 01/08/22 16:53 Director Commercial Sales ID Anonymous 01/08/22 16:53 Sodium 142 mmol/L (136-145) 01/12/22 02:27 Potassium 4.0 mmol/L (3.5-5.1) 01/12/22 02:27 Chloride 109 mmol/L (98-107) H 01/12/22 02:27 Carbon Dioxide 25 mmol/L (22-29) 01/12/22 02:27 Anion Gap 12.0 (5-19) 01/12/22 02:27 BUN 20 mg/dL (8-23) 01/12/22 02:27 Creatinine 0.7 mg/dL (0.5-0.9) 01/12/22 02:27 GFR Calculation 83.5 mL/min (90-130) L 01/12/22 02:27 Glucose 212 mg/dL (65-115) H 01/12/22 02:27 POC Glucose 200 mg/dL (70-110) H 01/13/22 11:09 Estimat Average Glucose 169 01/08/22 05:47 Hemoglobin A1c 7.5 % (4.0-6.0) H 01/08/22 05:47 Calculated Osmolality 303 mOsm/kg (285-295) H 01/12/22 02:27 Lactic Acid 2.3 mmol/L (0.5-2.2) H 01/06/22 18:20 Lactic Acid (Sepsis) 1.7 mmol/L (0.5-2.2) 01/06/22 20:42 Calcium 8.8 mg/dL (8.5-10.5) 01/12/22 02:27 Magnesium 2.5 mg/dL (1.7-2.3) H 01/06/22 18:20 Iron 35 ug/dL (37-145) L 01/07/22 11:31 TIBC 154 mcg/dl 01/07/22 11:31 % Saturation 22.7 % (20-50) 01/07/22 11:31 Unsat Iron Binding 119 ug/dL (112-347) 01/07/22 11:31 Total Bilirubin 0.3 mg/dL (0.15-1.2) 01/12/22 02:27 AST 17 U/L (0-32) 01/12/22 02:27 ALT 52 U/L (0-33) H 01/12/22 02:27 Alkaline Phosphatase 230 IU/L (35-105) H 01/12/22 02:27 Ammonia 46 umol/L (11-51) 01/08/22 05:47 Creatine Kinase 47 U/L (26-192) 01/06/22 18:20 NT-Pro-B Natriuret Pep 87 pg/mL (0-125) 01/08/22 06:22 Total Protein 5.5 g/dL (6.6-8.7) L 01/12/22 02:27 Albumin 2.1 g/dL (3.5-5.2) L 01/12/22 02:27 Globulin 3.4 g/dL (1.3-4.6) 01/12/22 02:27 Triglycerides Cancelled 01/08/22 05:47 Cholesterol Cancelled 01/08/22 05:47 LDL Cholesterol, Calc Cancelled 01/08/22 05:47 Total VLDL Cholesterol Cancelled 01/08/22 05:47 HDL Cholesterol Cancelled 01/08/22 05:47 Cholesterol/HDL Ratio Cancelled 01/08/22 05:47 Lipase 19 U/L (13-60) 01/06/22 18:20 Vitamin B12 1992 pg/mL (232-1245) H 01/07/22 11:31 Folate 3.6 ng/mL (4.8-37.3) L 01/07/22 11:31 Homocysteine 27.33 01/07/22 11:31 Procalcitonin 0.27 ng/mL (0-0.5) 01/07/22 11:31 TSH 1.71 uIU/mL (0.27-4.20) 01/08/22 06:22 Urine Color Yellow (Yellow) 01/06/22 18:20 Urine Appearance Hazy (CLEAR) A 01/06/22 18:20 Urine pH 5 (5-7) 01/06/22 18:20 Ur Specific [place] 1.030 (1.005-1.030) 01/06/22 18:20 Urine Protein 1+ (Negative) H 01/06/22 18:20 Urine Glucose (UA) Norm (Normal) 01/06/22 18:20 Urine Ketones Negative (Negative) 01/06/22 18:20 Urine Blood Trace (Negative) H 01/06/22 18:20 Urine Nitrate Negative (Negative) 01/06/22 18:20 Urine Bilirubin 1+ (Negative) H 01/06/22 18:20 Urine Urobilinogen 4 mg/dL (Negative) H 01/06/22 18:20 Ur Leukocyte Esterase 2+ (Negative) H 01/06/22 18:20 Urine RBC 0-4 /hpf (0-2) H 01/06/22 18:20 Urine WBC 15-25 /hpf (0-5) H 01/06/22 18:20 Ur Squamous Epith Cells 0-4 /hpf (0-5) H 01/06/22 18:20 Amorphous Sediment Not Reportable 01/06/22 18:20 Urine Bacteria 4+ /hpf (NONE) H 01/06/22 18:20 Urine Mucus 3+ /hpf 01/06/22 18:20 Ur Random Sodium 31 mmol/L 01/06/22 10:20 Ur Random Potassium 64 mmol/L 01/06/22 10:20 Ur Random Chloride 19 mmol/L 01/06/22 10:20 RPR Nonreactive (Nonreactive) 01/07/22 04:57 Coronavirus 229E (PCR) Not detected (NOT DETECT) 01/09/22 16:55 Hepatitis A IgM Ab Non-reactive (Nonreactive) 01/07/22 04:51 Hep Bs Antigen Non-reactive (Nonreactive) 01/07/22 04:51 Hep Bs Antibody 58.2 (11.5-1000) 01/07/22 04:51 Hep B Core Total Ab Non-reactive (Nonreactive) 01/07/22 04:51 Hepatitis C Antibody Non-reactive (Nonreactive) 01/07/22 04:51 HIV 1&2 Ab & HIV 1 Ag Non-reactive (Non-Reactiv) 01/07/22 04:57 HIV 1&2 Antibody Non-reactive (Non-Reactiv) 01/07/22 04:57 SARS-CoV-2 (PCR) Not detected (NOT DETECT) 01/09/22 16:55 SARS-CoV-2 Ag (Rapid) Cancelled 01/07/22 00:23 Vitals Last Vital Signs Temp 98.1 F 01/13/22 11:11 Pulse 68 01/13/22 11:11 Resp 18 01/13/22 11:11 BP 116/74 01/13/22 11:11 Pulse Ox 90 01/13/22 11:11 Discharge Plan Discharge Patient Disposition: Home Condition: Stable Prescriptions: New metoclopramide HCl 5 mg/5 mL Solution 5 mg PO BID Qty: 500 0RF zinc oxide 20 % Ointment 1 applic topical PRN PRN (Reason: Skin Protectant) Qty: 200 0RF folic acid 1 mg Tablet 1 mg PO BID Qty: 60 0RF lactulose 20 gram/30 mL Solution 10 g PO TID PRN (Reason: constipation) 100 Days 0RF ipratropium-albuterol 0.5 mg-3 mg(2.5 mg base)/3 mL Solution For Nebulization 3 ml inhalation Q6H PRN (Reason: Shortness Of Breath) 100 Days 0RF sucralfate 100 mg/mL Suspension 1 g PO TID Qty: 1000 0RF docusate sodium [Docu] 50 mg/5 mL Liquid 100 mg peg-tube DAILY Qty: 200 0RF Continued oxybutynin chloride 5 mg tablet 5 mg PO BID 0RF venlafaxine 37.5 mg tablet 37.5 mg PO DAILY 0RF Discontinued Tresiba FlexTouch U-100 100 unit/mL (3 mL) insulin pen 15 unit SUBCUT BEDTIME 0RF simvastatin 10 mg tablet 10 mg PO DAILY 0RF gabapentin 300 mg capsule 300 mg PO TID 0RF metformin 1,000 mg Tablet 1,000 mg PO BID 0RF Discharge Orders: Discharge Order (Routine); Ordered 01/13/22 Ordered By: Evelyn Lobo Ambulatory Orders: DME: [facility] (Order) Location: None Selected Ordered By: Mahesh Chi DME: Hospital Bed (Order) Location: None Selected Ordered By: Mahesh Chi Referrals: IN home services [Other] (Call this # to see if you qualify for in home services. You will answer a series of questions and be assigned points based off your answers. The total # of points assigned will determine if you qualify for services and what you qualify for. ) [place] [facility] Home Service Setup [Other] (Call this number to get In Home Services setup. They will ask you questions & based off your answers, you are given points. You have to have a certain number of points to qualify for [facility]. ) [facility] [Outside] GIOVANNI SILVEIRA MD [Primary Care Provider] - Discharge Diet: Start new tube feeds as directed Discharge Activity: Resume usual activity Patient Instructions: GI Discharge Instructions, Opioid Safety Coding Level of Care Code Acute [facility] note Diagnoses Aspiration pneumonitis J69.0 Gastritis K29.70 S/P percutaneous endoscopic gastrostomy (PEG) tube placement Z93.1 Protein-energy malnutrition E46 Hypoxia R09.02 Transaminitis R74.01 Acute kidney injury N17.9 Hypertension I10 Altered mental status R41.82 UTI (urinary tract infection) N39.0 Hydrocephalus G91.9 Diabetes E11.9 Adult failure to thrive R62.7 Weakness R53.1 Dehydration E86.0 Hypernatremia E87.0 HLD (hyperlipidemia) E78.5
--- NOTE | 2022-01-13 13:39 | PC.SOCIAL ---
IMM Updated Updated pt & daughter on IMM. No questions voiced. Provided pt a copy. Initialed, dated, & timed copy in chart.
--- NOTE | 2022-01-13 13:42 | P.DS_ITS ---
Discharge Providers Date of Admission: 01/06/22 19:26 Date of Discharge: January 13, 2022 Attending Provider at Admission: Angela Davison MD Attending Provider at Discharge: Evelyn Ahn MD Primary Care Provider: GIOVANNI SILVEIRA MD Diagnoses at Discharge Discharge Diagnosis (1) Aspiration pneumonitis: Status: Acute (2) Gastritis: Status: Acute (3) S/P percutaneous endoscopic gastrostomy (PEG) tube placement: Status: Acute (4) Protein-energy malnutrition: Status: Acute (5) Hypoxia: Status: Acute (6) Transaminitis: Status: Acute (7) Acute kidney injury: Status: Acute (8) Hypertension: Status: Acute (9) Altered mental status: Status: Acute (10) UTI (urinary tract infection): Status: Acute (11) Hydrocephalus: Status: Acute (12) Diabetes: Status: Acute (13) Adult failure to thrive: Status: Acute (14) Weakness: Status: Acute (15) Dehydration: Status: Acute (16) Hypernatremia: Status: Acute (17) HLD (hyperlipidemia): Status: Acute Reason for Visit Reason for Visit: failure to thrive Hospital Course Hospital Course Melba Zee is a 66 year old female with past medical history of dementia, hydrocephalus, nonverbal at baseline.? Brought in today by her family.? Per patient's daughter, at a baseline patient has been nonverbal at least for the past 5 to 6 years, however she is able to ambulate with a walker, follows some simple commands, is able to communicate with gestures with her daughter.? Over this past week she has been increasingly more lethargic and fatigued.? She has not been walking as usual.? Also noted to be needing to eat a pur?ed diet and having a poor p.o. intake.? Normally she keeps a glass glass of water and is able to sip from a straw but has been unable to do that over the past week.? Daughter states that during past episodes of UTI and infection patient's mental status usually deteriorates and she was brought into the emergency room for this concern.? Here she was noted to have multiple electrolyte abnormalities, hypernatremia with sodium at 152, chloride 115, elevated creatinine at 1.5] baseline 0.9).? Patient was started on lisinopril 5 mg daily over the past month for hypertension, however this was discontinued yesterday.? She was also noted to have mild hypercalcemia deranged LFTs and a positive UA. HerUTI was treated w/ Zosyn and hypernatremia corrected w/ hydration. However her mental status did not improve much. CT head revealed extensive hydrocephalus. Pt's family opted for non invasive corrective measures for treating thew hydrocephalus w/ SENIOR RESEARCH ENGINEER shunt. Pt had a PEG placed to maintain her nutrion and high risk for aspiration. Her hypoxia was thought to be due to aspiration PNA. Pt will be d/c home on hospice care. Physical Exam Narrative: NAD, Poorly responsive HEENT: Atraumatic cephalus, Thr (-), Nose (-) Neck supple, Thy(-) CVS: S1S2, RRR, Mur(-) Resp: Decreased BS basally Abd: Soft, NT, BS+, PEG in place Edema (-) NANOSYSTEMS ENGINEER: Lethargic, Responds to pain Discharge Data Studies Completed and Pending Completed Studies During Hospitalization Category Date Time Status CT head wo con* [id number] Stat Cat Scan 01/06/22 17:38 Completed CTA chest [CT angio chest PE protcl [id number]] Stat Cat Scan 01/08/22 18:20 Completed CXRP [XR chest 1V portable [id number]] Urgent Exams 01/08/22 16:17 Completed XR KUB portable [id number] Urgent Exams 01/10/22 13:27 Completed XR chest 1V portable [id number] Routine Exams 01/11/22 14:31 Completed XR chest 1V portable [id number] Stat Exams 01/06/22 17:38 Completed CV. echo complete* [id number] Routine Ultrasound 01/09/22 [place] liver [id number] Routine Ultrasound 01/07/22 08:07 Completed Pending at discharge Category Date Time Status ABG FULL [Arterial Blood Gas Full] Stat Lab 01/08/22 16:53 Results Blood Culture AM LABS Lab 01/11/22 05:45 Results Radiology Impressions Head CT 01/06/22 17:38 IMPRESSION: 1. No acute intracranial abnormality. 2. Right mastoid effusion. 3. Marked cerebral atrophy and chronic microvascular white matter disease. Liver Ultrasound 01/07/22 08:07 IMPRESSION: 1. Hepatic echotexture suggesting changes of cirrhosis. No mass. 2. Gallbladder is not identified. May have been surgically removed or contracted. 3. No bile duct dilatation. Chest CTA 01/08/22 18:20 IMPRESSION: 1. Negative for pulmonary embolism. 2. Multifocal pneumonia process. KUB X-Ray 01/10/22 13:27 IMPRESSION: No sign of bowel obstruction. Chest X-Ray 01/11/22 14:31 IMPRESSION: 1. Mild airspace disease demonstrated in the left mid to lower lung. This has improved/decreased when compared to 01/08/2022. 2. Minimal airspace disease seen in the inferomedial aspect of the right lower lobe. Right lung demonstrates improved aeration when compared to 01/08/2022. 3. There are no new infiltrates identified. Laboratory Results WBC 5.4 10^3/uL (4.0-10.0) 01/12/22 02:27 RBC 3.41 10^6/uL (4.1-5.3) L 01/12/22 02:27 Hgb 10.9 g/dL (11.5-15.3) L 01/12/22 02:27 Hct 33.8 % (37.0-47.0) L 01/12/22 02:27 MCV 99.1 fl (81-99) H 01/12/22 02:27 MCH 32.0 pg (28.0-34.0) 01/12/22 02:27 MCHC 32.2 g/dL (30.0-36.0) 01/12/22 02:27 RDW 13.5 % (12.1-15.1) 01/12/22 02:27 Plt Count 119 10^3/cmm (130-400) L 01/12/22 02:27 MPV 12.5 fL (7.4-10.4) H 01/12/22 02:27 Neut % (Auto) 80.8 % 01/12/22 02:27 Lymph % (Auto) 9.5 % 01/12/22 02:27 [place] % (Auto) 4.8 % 01/12/22 02:27 Eos % (Auto) 1.5 % 01/12/22 02:27 Baso % (Auto) 0.4 % 01/12/22 02:27 Neut # (Auto) 4.34 10^3/uL (1.8-7.7) 01/12/22 02:27 Lymph # (Auto) 0.5 10^3/uL (0.8-4.8) L 01/12/22 02:27 [place] # (Auto) 0.3 10^3/uL (0.2-0.9) 01/12/22 02:27 Eos # (Auto) 0.1 10^3/uL (0.0-0.8) 01/12/22 02:27 Baso # (Auto) 0.0 10^3/uL (0.0-0.1) 01/12/22 02:27 Nucleated RBC % (auto) 0 % 01/12/22 02:27 Total Counted 100 (0-100) 01/09/22 05:50 Atypical Lymphs % 0.0 % (0-5) 01/09/22 05:50 Absolute Neutrophils 7.5 10^3/cmm (1.4-6.5) H 01/09/22 05:50 Segmented Neutrophils 44 % 01/09/22 05:50 Abs Segm Neuts (Man) 4.1 10/cmm (1.6-7.1) 01/09/22 05:50 Band Neutrophils 36.0 % 01/09/22 05:50 Abs Band Neuts (Man) 3.4 10^3/cmm (0.0-1.2) H 01/09/22 05:50 Absolute Lymphocytes 1.1 10^3/cmm (1.2-3.4) L 01/09/22 05:50 Lymphocytes (Manual) 12 % 01/09/22 05:50 Monocytes (Manual) 5.0 % 01/09/22 05:50 Absolute Monocytes 0.5 10^3/cmm (0.1-0.6) 01/09/22 05:50 Eosinophils (Manual) 0 % 01/09/22 05:50 Absolute Eosinophils 0.0 10^3/cmm (0.0-0.7) 01/09/22 05:50 Basophils (Manual) 0.0 % 01/09/22 05:50 Absolute Basophils 0.0 10^3/cmm (0.0-0.2) 01/09/22 05:50 Metamyelocytes 3.0 % 01/09/22 05:50 Myelocytes 0.0 % 01/09/22 05:50 Nucleated RBCs # 0.0 /100WBC 01/12/22 02:27 Platelet Estimate Decreased (Normal) L 01/09/22 05:50 Giant Platelets Trace 01/09/22 05:50 D-Dimer 1.66 ug/mIFEU (0-0.59) H 01/08/22 17:20 Specimen Type Arterial 01/08/22 16:53 ABG pH 7.49 (7.35-7.45) H 01/08/22 16:53 ABG pCO2 29.2 mmHg (35-45) L 01/08/22 16:53 ABG pO2 60.4 mmHg (80.0-100.0) L 01/08/22 16:53 ABG HCO3 22.2 mmol/L (22-26) 01/08/22 16:53 ABG O2 Saturation 93.4 01/08/22 16:53 ABG Base Excess 0.0 mmol/L (-2.0-2.0) 01/08/22 16:53 Adeel Test Pos 01/08/22 16:53 A-a O2 Gradient 6.8 mmHg (5-10) 01/08/22 16:53 Hematocrit 45.2 % (37-47) 01/08/22 16:53 Hgb O2 Saturation 91.8 % (95-100) L 01/08/22 16:53 Carboxyhemoglobin 0.7 %THgb (0.4-20.1) 01/08/22 16:53 Methemoglobin 1.0 % (0.4-1.5) 01/08/22 16:53 Total Hemoglobin 14.8 g/dL (12-16) 01/08/22 16:53 Sodium 142.0 mmol/L (131-143) 01/08/22 16:53 Potassium 3.8 mmol/L (3.5-5.0) 01/08/22 16:53 Glucose 324.0 mg/dL (70-115) H 01/08/22 16:53 Ionized Calcium 1.2 mmol/L (1.1-1.4) 01/08/22 16:53 Wiring Technician ID Anonymous 01/08/22 16:53 Sodium 142 mmol/L (136-145) 01/12/22 02:27 Potassium 4.0 mmol/L (3.5-5.1) 01/12/22 02:27 Chloride 109 mmol/L (98-107) H 01/12/22 02:27 Carbon Dioxide 25 mmol/L (22-29) 01/12/22 02:27 Anion Gap 12.0 (5-19) 01/12/22 02:27 BUN 20 mg/dL (8-23) 01/12/22 02:27 Creatinine 0.7 mg/dL (0.5-0.9) 01/12/22 02:27 GFR Calculation 83.5 mL/min (90-130) L 01/12/22 02:27 Glucose 212 mg/dL (65-115) H 01/12/22 02:27 POC Glucose 200 mg/dL (70-110) H 01/13/22 11:09 Estimat Average Glucose 169 01/08/22 05:47 Hemoglobin A1c 7.5 % (4.0-6.0) H 01/08/22 05:47 Calculated Osmolality 303 mOsm/kg (285-295) H 01/12/22 02:27 Lactic Acid 2.3 mmol/L (0.5-2.2) H 01/06/22 18:20 Lactic Acid (Sepsis) 1.7 mmol/L (0.5-2.2) 01/06/22 20:42 Calcium 8.8 mg/dL (8.5-10.5) 01/12/22 02:27 Magnesium 2.5 mg/dL (1.7-2.3) H 01/06/22 18:20 Iron 35 ug/dL (37-145) L 01/07/22 11:31 TIBC 154 mcg/dl 01/07/22 11:31 % Saturation 22.7 % (20-50) 01/07/22 11:31 Unsat Iron Binding 119 ug/dL (112-347) 01/07/22 11:31 Total Bilirubin 0.3 mg/dL (0.15-1.2) 01/12/22 02:27 AST 17 U/L (0-32) 01/12/22 02:27 ALT 52 U/L (0-33) H 01/12/22 02:27 Alkaline Phosphatase 230 IU/L (35-105) H 01/12/22 02:27 Ammonia 46 umol/L (11-51) 01/08/22 05:47 Creatine Kinase 47 U/L (26-192) 01/06/22 18:20 NT-Pro-B Natriuret Pep 87 pg/mL (0-125) 01/08/22 06:22 Total Protein 5.5 g/dL (6.6-8.7) L 01/12/22 02:27 Albumin 2.1 g/dL (3.5-5.2) L 01/12/22 02:27 Globulin 3.4 g/dL (1.3-4.6) 01/12/22 02:27 Triglycerides Cancelled 01/08/22 05:47 Cholesterol Cancelled 01/08/22 05:47 LDL Cholesterol, Calc Cancelled 01/08/22 05:47 Total VLDL Cholesterol Cancelled 01/08/22 05:47 HDL Cholesterol Cancelled 01/08/22 05:47 Cholesterol/HDL Ratio Cancelled 01/08/22 05:47 Lipase 19 U/L (13-60) 01/06/22 18:20 Vitamin B12 1992 pg/mL (232-1245) H 01/07/22 11:31 Folate 3.6 ng/mL (4.8-37.3) L 01/07/22 11:31 Homocysteine 27.33 01/07/22 11:31 Procalcitonin 0.27 ng/mL (0-0.5) 01/07/22 11:31 TSH 1.71 uIU/mL (0.27-4.20) 01/08/22 06:22 Urine Color Yellow (Yellow) 01/06/22 18:20 Urine Appearance Hazy (CLEAR) A 01/06/22 18:20 Urine pH 5 (5-7) 01/06/22 18:20 Ur Specific [place] 1.030 (1.005-1.030) 01/06/22 18:20 Urine Protein 1+ (Negative) H 01/06/22 18:20 Urine Glucose (UA) Norm (Normal) 01/06/22 18:20 Urine Ketones Negative (Negative) 01/06/22 18:20 Urine Blood Trace (Negative) H 01/06/22 18:20 Urine Nitrate Negative (Negative) 01/06/22 18:20 Urine Bilirubin 1+ (Negative) H 01/06/22 18:20 Urine Urobilinogen 4 mg/dL (Negative) H 01/06/22 18:20 Ur Leukocyte Esterase 2+ (Negative) H 01/06/22 18:20 Urine RBC 0-4 /hpf (0-2) H 01/06/22 18:20 Urine WBC 15-25 /hpf (0-5) H 01/06/22 18:20 Ur Squamous Epith Cells 0-4 /hpf (0-5) H 01/06/22 18:20 Amorphous Sediment Not Reportable 01/06/22 18:20 Urine Bacteria 4+ /hpf (NONE) H 01/06/22 18:20 Urine Mucus 3+ /hpf 01/06/22 18:20 Ur Random Sodium 31 mmol/L 01/06/22 10:20 Ur Random Potassium 64 mmol/L 01/06/22 10:20 Ur Random Chloride 19 mmol/L 01/06/22 10:20 RPR Nonreactive (Nonreactive) 01/07/22 04:57 Coronavirus 229E (PCR) Not detected (NOT DETECT) 01/09/22 16:55 Hepatitis A IgM Ab Non-reactive (Nonreactive) 01/07/22 04:51 Hep Bs Antigen Non-reactive (Nonreactive) 01/07/22 04:51 Hep Bs Antibody 58.2 (11.5-1000) 01/07/22 04:51 Hep B Core Total Ab Non-reactive (Nonreactive) 01/07/22 04:51 Hepatitis C Antibody Non-reactive (Nonreactive) 01/07/22 04:51 HIV 1&2 Ab & HIV 1 Ag Non-reactive (Non-Reactiv) 01/07/22 04:57 HIV 1&2 Antibody Non-reactive (Non-Reactiv) 01/07/22 04:57 SARS-CoV-2 (PCR) Not detected (NOT DETECT) 01/09/22 16:55 SARS-CoV-2 Ag (Rapid) Cancelled 01/07/22 00:23 Vitals Last Vital Signs Temp 98.1 F 01/13/22 11:11 Pulse 68 01/13/22 11:11 Resp 18 01/13/22 11:11 BP 116/74 01/13/22 11:11 Pulse Ox 90 01/13/22 11:11 Discharge Plan Discharge Patient Disposition: Home Condition: Stable Prescriptions: New Docu 50 mg/5 mL Liquid 100 mg peg-tube DAILY Qty: 200 0RF ipratropium-albuterol 0.5 mg-3 mg(2.5 mg base)/3 mL Solution For Nebulization 3 ml inhalation Q6H PRN (Reason: Shortness Of Breath) 100 Days 0RF metoclopramide HCl 5 mg/5 mL Solution 5 mg PO BID Qty: 500 0RF folic acid 1 mg Tablet 1 mg PO BID Qty: 60 0RF lactulose 20 gram/30 mL Solution 10 g PO TID PRN (Reason: constipation) 100 Days 0RF sucralfate 100 mg/mL Suspension 1 g PO TID Qty: 1000 0RF zinc oxide 20 % Ointment 1 applic topical PRN PRN (Reason: Skin Protectant) Qty: 200 0RF Continued oxybutynin chloride 5 mg tablet 5 mg PO BID 0RF venlafaxine 37.5 mg tablet 37.5 mg PO DAILY 0RF Discontinued Tresiba FlexTouch U-100 100 unit/mL (3 mL) insulin pen 15 unit SUBCUT BEDTIME 0RF simvastatin 10 mg tablet 10 mg PO DAILY 0RF gabapentin 300 mg capsule 300 mg PO TID 0RF metformin 1,000 mg Tablet 1,000 mg PO BID 0RF Discharge Orders: Discharge Order (Routine); Ordered 01/13/22 Ordered By: Evelyn Ahn Other Ambulatory Orders: DME: [facility] (Order) Location: None Selected Ordered By: Mahesh Chi DME: Hospital Bed (Order) Location: None Selected Ordered By: Mahesh Chi Referrals: IN home services [Other] (Call this # to see if you qualify for in home services. You will answer a series of questions and be assigned points based off your answers. The total # of points assigned will determine if you qualify for services and what you qualify for. ) [place] [facility] Home Service Setup [Other] (Call this number to get In Home Services setup. They will ask you questions & based off your answers, you are given points. You have to have a certain number of points to qualify for [facility]. ) [facility] [Outside] GIOVANNI SILVEIRA MD [Primary Care Provider] - 02/17/22 10:20 am Discharge Diet: Start new tube feeds as directed Discharge Activity: Resume usual activity Patient Instructions: GI Discharge Instructions, Opioid Safety Discharge Attestations Time Spent in Discharge Care*: greater than 30 min Quality Metrics Clinical Quality Measures [ No reported AMI, CVA or VTE this stay] Coding Level of Care Code Acute Chg FW DC note Diagnoses Aspiration pneumonitis J69.0 Gastritis K29.70 S/P percutaneous endoscopic gastrostomy (PEG) tube placement Z93.1 Protein-energy malnutrition E46 Hypoxia R09.02 Transaminitis R74.01 Acute kidney injury N17.9 Hypertension I10 Altered mental status R41.82 UTI (urinary tract infection) N39.0 Hydrocephalus G91.9 Diabetes E11.9 Adult failure to thrive R62.7 Weakness R53.1 Dehydration E86.0 Hypernatremia E87.0 HLD (hyperlipidemia) E78.5
[2022-01-13 15:29] VITALS: BP 116/70; PULSE 67; RESP 16; TEMP 36.5; O2SAT 94
--- NOTE | 2022-01-13 18:47 | PC.NURSE ---
Called patients daughter and discussed discharge instructions. Felecia verbalized understanding. Patient transported home via ambulance. Hospice notified pt was leaving.
[2022-01-13 18:56] VITALS: BP 116/70; PULSE 67; RESP 16; TEMP 36.5; O2SAT 94
== END 2022-01-13 19:01 | disposition hospice, home (50) | DRG 682 ==
LOC: ER 19:28 → MEDSURG 19:46
PROVIDERS: Family Medicine; Student in an Organized Health Care Education/Training Program; Surgery; Admitting Provider Student in an Organized Health Care Education/Training Program; Emergency Provider Emergency Medicine; PCP Family Medicine; Visit Provider Internal Medicine
PROC: 0DH63UZ Insertion of Feeding Device into Stomach, Percutaneous Approach (ICD-10-PCS; CPT 43246; principal; 2022-01-09 10:00)
PROC: 0DJ08ZZ Inspection of Upper Intestinal Tract, Via Natural or Artificial Opening Endoscopic (ICD-10-PCS; CPT 43235; 2022-01-09 10:00)
DX: N17.9 Acute kidney failure, unspecified (principal); G93.41 Metabolic encephalopathy; J69.0 Pneumonitis due to inhalation of food and vomit; N39.0 Urinary tract infection, site not specified; G91.9 Hydrocephalus, unspecified; E87.0 Hyperosmolality and hypernatremia; E46 Unspecified protein-calorie malnutrition; F03.90 Unspecified dementia, unspecified severity, without behavioral disturbance, psychotic disturbance, mood disturbance, and anxiety; E11.9 Type 2 diabetes mellitus without complications; E78.5 Hyperlipidemia, unspecified; I10 Essential (primary) hypertension; E86.0 Dehydration; Z87.440 Personal history of urinary (tract) infections; E83.52 Hypercalcemia; B96.20 Unspecified Escherichia coli [E. coli] as the cause of diseases classified elsewhere; Z68.21 Body mass index [BMI] 21.0-21.9, adult; K29.70 Gastritis, unspecified, without bleeding; R09.02 Hypoxemia
CPT/HCPCS: 36415; 36416; 36600; 43246; 70450; 71045; 71275; 74018; 76705; 80048; 80051; 80053; 81001; 82140; 82330; 82436; 82550; 82607; 82746; 82805; 82962; 83036; 83090; 83540; 83550; 83605; 83690; 83735; 83880; 84133; 84145; 84300; 84443; 85007; 85025; 85378; 86592; 86705; 86706; 86709; 86803; 87040; 87077; 87086; 87186; 87340; 87635; 87641; 87806; 92523; 92610; 93005; 93306; 94640; 94669; 96361; 96372; 96374; 97161; 97530; 99285; C9113; J0696; J1644; J1650; J1815; J2405; J2543; J2765; J7030; Q9967